=== PATIENT | female | born 1985 | race Caucasian/White ===

== ENCOUNTER → 2020-08-04 13:16 | Outpatient (BNVA) | payer MEDICARE, MEDICAID, SELFPAY | PROVIDERS: PCP Physician Assistant Medical; Visit Provider Physician Assistant | DX: E66.01 Morbid (severe) obesity due to excess calories (principal); Z68.44 Body mass index [BMI] 60.0-69.9, adult | CPT/HCPCS: 99214 ==

== ENCOUNTER → 2020-08-18 07:46 | Outpatient (BNVA) | payer MEDICARE, MEDICAID, SELFPAY | PROVIDERS: Visit Provider Dietitian, Registered | DX: Z76.89 Persons encountering health services in other specified circumstances (principal) ==

== ENCOUNTER → 2020-09-15 13:36 | Outpatient (BNVA) | payer MEDICARE, MEDICAID, SELFPAY | PROVIDERS: Visit Provider Dietitian, Registered | DX: Z76.89 Persons encountering health services in other specified circumstances (principal) ==

== ENCOUNTER → 2020-10-26 08:16 | Outpatient (BNVA) | payer MEDICARE, MEDICAID, SELFPAY | PROVIDERS: Visit Provider Dietitian, Registered | DX: Z76.89 Persons encountering health services in other specified circumstances (principal) ==

== ENCOUNTER → 2020-11-03 11:27 | Outpatient (BNVA) | payer MEDICARE, MEDICAID, SELFPAY | PROVIDERS: PCP Internal Medicine; Visit Provider Surgery | DX: Z01.818 Encounter for other preprocedural examination (principal); E66.01 Morbid (severe) obesity due to excess calories; R06.02 Shortness of breath; Z68.44 Body mass index [BMI] 60.0-69.9, adult | CPT/HCPCS: Q3014 ==

== ENCOUNTER → 2020-11-11 08:08 | Outpatient (BNVA) | payer MEDICARE, MEDICAID, SELFPAY | PROVIDERS: PCP Nurse Practitioner Family; Visit Provider Physician Assistant | DX: E66.01 Morbid (severe) obesity due to excess calories (principal) | CPT/HCPCS: Q3014 ==

== ENCOUNTER → 2020-11-18 09:31 | Outpatient (BNVA) | payer MEDICARE, MEDICAID, SELFPAY | PROVIDERS: PCP Internal Medicine; Visit Provider Surgery | DX: Z01.818 Encounter for other preprocedural examination (principal); E66.01 Morbid (severe) obesity due to excess calories; K21.9 Gastro-esophageal reflux disease without esophagitis; R06.02 Shortness of breath; Z68.43 Body mass index [BMI] 50.0-59.9, adult | CPT/HCPCS: Q3014 ==

== ENCOUNTER → 2020-11-25 08:19 | Outpatient (BNVA) | payer MEDICARE, MEDICAID, SELFPAY | PROVIDERS: PCP Nurse Practitioner Family; Visit Provider Dietitian, Registered ==

== ENCOUNTER → 2020-12-02 08:38 | Outpatient (BNVA) | payer MEDICARE, MEDICAID, SELFPAY | PROVIDERS: PCP Nurse Practitioner Family; Visit Provider Dietitian, Registered ==

== ENCOUNTER → 2020-12-27 09:14 | Outpatient (BNVA) | payer MEDICARE, MEDICAID, SELFPAY | PROVIDERS: PCP Internal Medicine; Visit Provider Nurse Practitioner Family | DX: G47.33 Obstructive sleep apnea (adult) (pediatric) (principal); G47.00 Insomnia, unspecified | CPT/HCPCS: Q3014 ==

== ENCOUNTER → 2021-02-07 09:47 | Outpatient (BNVA) | payer MEDICARE, MEDICAID, SELFPAY | PROVIDERS: PCP Internal Medicine; Visit Provider Physician Assistant | DX: E66.01 Morbid (severe) obesity due to excess calories (principal); Z68.44 Body mass index [BMI] 60.0-69.9, adult; Z79.899 Other long term (current) drug therapy; Z71.3 Dietary counseling and surveillance | CPT/HCPCS: 99212 ==

== ENCOUNTER → 2021-03-07 14:12 | Outpatient (BNVA) | payer MEDICARE, MEDICAID, SELFPAY | PROVIDERS: PCP Nurse Practitioner Family; Referring Provider Nurse Practitioner Family; Visit Provider Surgery | DX: E66.01 Morbid (severe) obesity due to excess calories (principal); Z68.44 Body mass index [BMI] 60.0-69.9, adult | CPT/HCPCS: 99212 ==

== ENCOUNTER 2021-03-08 10:07 | Outpatient (REF) | payer MEDICARE, MEDICAID, SELFPAY ==
--- NOTE | ~2021-03-08 | XR_ITS ---
EXAMINATION: XR CHEST CLINICAL INFORMATION: Shortness of breath COMPARISON: None TECHNIQUE: 2 views of the chest were obtained. FINDINGS: No significant abnormality is noted involving the heart, lungs, mediastinum, bony thorax or soft tissues. XR/XR chest 2V IMPRESSION: Unremarkable examination.
[2021-03-08 11:40] LABS: MANUAL DIFF FLAG NO
[2021-03-08 11:45] LABS: Basophils Percent Auto 0.4 % (0-2); Eosinophils Absolute Auto 0.1 X10*3/uL (0.0-0.4); Eosinophils Percent Auto 1.1 % (0-4); Hematocrit 39.6 % (37-47); Hemoglobin 12.5 g/dl (12.0-16.0); Imm Gran Abs Auto 0.03 X10*3/uL (0.00-0.03); Imm Gran Pct Auto 0.3 % (0.0-0.4); Lymphocytes Absolute Auto 2.5 X10*3/uL (1.2-4.9); Lymphocytes Percent Auto 24.2 % (20-40); Mean Corpuscular HGB Conc 31.6 g/dl (31.0-35.0); Mean Corpuscular Hemoglobin 27.3 pg (27.0-33.0); Mean Corpuscular Volume 86.5 fL (80-98); Monocytes Absolute Auto 0.6 X10*3/uL (0.1-1.2); Monocytes Percent Auto 6.2 % (2-11); Neutrophils Percent Auto 67.8 % (45-73); Platelet Count 478 X10*3/uL (160-400); Red Blood Count 4.58 X10*6/uL (4.20-5.50); Red Cell Distribution Width 14.5 % (11.0-16.0); White Blood Count 10.3 X10*3/uL (4.8-10.8)
[2021-03-08 12:08] LABS: Alanine Aminotransferase 19 U/L (0-31); Albumin Level 4.1 g/dL (3.5-5.0); Alkaline Phosphatase 81 U/L (39-117); Anion Gap 13 (12-20); Aspartate Amino Transferase 12 U/L (5-31); Bilirubin Total 0.4 mg/dL (0.0-1.0); Blood Urea Nitrogen 9 mg/dL (9-16); Calcium 9.5 mg/dL (8.4-10.2); Carbon Dioxide 27 mmol/L (22-29); Chloride 103 mmol/L (96-108); Cholesterol 175 mg/dL; Estimated Glomerular Filt Rate > 60; Glucose Fasting 84 mg/dL (60-99); HDL Cholesterol 50 mg/dL; Iron 41 mcg/dL (30-160); LDL Cholesterol Calculated 112 mg/dl; Percent Iron Saturation 11 % (15-50); Potassium 4.7 mmol/L (3.3-5.1); Sodium 138 mmol/L (135-145); Total Iron Binding Capacity 379 mcg/dL (228-428); Triglycerides 66 mg/dL; Unsaturated Iron Binding 338 ug/dL
[2021-03-08 12:30] LABS: Thyroid Stimulating Hormone 1.97 uIU/mL (0.32-4.0); Vitamin D 25-OH Total 30.2 ng/mL (>30)
[2021-03-08 12:59] LABS: Vitamin B12 256 pg/mL (200-900)
--- NOTE | 2021-03-08 13:54 | ECG_ITS ---
Test Reason : SOB Blood Pressure : / mmHG Vent. Rate : 080 BPM Atrial Rate : 080 BPM P-R Int : 154 ms QRS Dur : 086 ms QT Int : 390 ms P-R-T Axes : 023 -12 061 degrees QTc Int : 449 ms Normal sinus rhythm Normal ECG No previous ECGs available Referred By: Natali Botello Electronically Signed By:DONNIE RICHEY
[2021-03-10 10:22] LABS: Calcium (PTHI) 9.5 mg/dL (8.6-10.2); PTHI 50 pg/mL (14-64)
[2021-03-10 16:51] LABS: Zinc 62 mcg/dL (60-130)
[2021-03-12 12:16] LABS: Vitamin B1 11 nmol/L (8-30)
[2021-03-14 10:17] LABS: Vitamin A 48 mcg/dL (38-98)
== END 2021-03-08 10:08 | disposition home or self-care (01) ==
LOC: HO.LAB 10:07
PROVIDERS: PCP Nurse Practitioner Family; Visit Provider Surgery
DX: Z01.818 Encounter for other preprocedural examination (principal); R06.02 Shortness of breath
CPT/HCPCS: 36415; 71046; 80053; 80061; 82306; 82607; 83540; 83970; 84425; 84443; 84590; 84630; 85025; 86140; 93005

== ENCOUNTER 2021-03-27 13:58 | Outpatient (REF) | payer MEDICARE, MEDICAID, SELFPAY ==
[2021-03-28 11:37] LABS: H Pylori Breath Test NOT DETECTED (NOT DETECTED)
== END 2021-03-27 13:59 | disposition home or self-care (01) ==
LOC: HO.LNP 13:58
PROVIDERS: Surgery; PCP Nurse Practitioner Family; Referring Provider Nurse Practitioner Family; Visit Provider Physician Assistant
DX: E66.01 Morbid (severe) obesity due to excess calories (principal); Z68.44 Body mass index [BMI] 60.0-69.9, adult; Z71.3 Dietary counseling and surveillance
CPT/HCPCS: 83013; 99212

== ENCOUNTER → 2021-04-25 08:35 | Outpatient (BNVA) | payer MEDICARE, MEDICAID, SELFPAY | PROVIDERS: PCP Internal Medicine; Visit Provider Nurse Practitioner Family | CPT/HCPCS: Q3014 ==

== ENCOUNTER → 2021-10-09 13:37 | Outpatient (BNVA) | payer MEDICARE, MEDICAID, SELFPAY | PROVIDERS: PCP Nurse Practitioner Family; Referring Provider Nurse Practitioner Family; Visit Provider Physician Assistant Surgical | DX: E66.01 Morbid (severe) obesity due to excess calories (principal); Z68.45 Body mass index [BMI] 70 or greater, adult | CPT/HCPCS: 99212 ==

== ENCOUNTER → 2022-01-19 08:13 | Outpatient (BNVA) | payer MEDICARE, MEDICAID, SELFPAY | PROVIDERS: PCP Nurse Practitioner Family; Visit Provider Nurse Practitioner Family | DX: Z13.89 Encounter for screening for other disorder (principal) | CPT/HCPCS: Q3014 ==

== ENCOUNTER 2023-06-06 16:21 | Emergency (ER) | payer MEDICARE, MEDICAID, SELFPAY ==
[2023-06-06 16:45] VITALS: BP 150/101; PULSE 84; RESP 18; TEMP 36.8; O2SAT 96; BMI 76.7
--- NOTE | 2023-06-06 16:46 | ED_ITS ---
HPI - Psych General Chief Complaint: Psychiatric Symptoms Stated Complaint: etoh,feeling suicidal Time Seen by Provider: 06/06/23 16:39 Source: patient Mode of arrival: ambulatory Limitations: no limitations History of Present Illness HPI Narrative: Patient comes to the emergency room complaining of suicidal ideation, anxiety, depression, and alcohol intoxication. Patient states that she does take her medication regularly, occasionally forgets. Patient states that she does not believe that her medications are helping her. Patient denies homicidal ideation. Patient states that she did not tried hurting herself prior to arrival. Related Data Home Medications Medication Instructions Recorded Confirmed albuterol sulfate 90 mcg/actuation 2 puff inhalation Q4-6H PRN 06/06/23 06/06/23 aerosol inhaler (Ventolin HFA) Shortness Of Breath Or Wheezing amlodipine 5 mg tablet 5 mg PO DAILY 06/06/23 06/06/23 brexpiprazole 3 mg tablet (Rexulti) 3 mg PO DAILY 06/06/23 06/06/23 cholestyramine (with sugar) 4 gram 4 g PO BID 06/06/23 06/06/23 oral powder ergocalciferol (vitamin D2) 1,250 1,250 mcg PO QWEEK 06/06/23 06/06/23 mcg (50,000 unit) capsule fluticasone fur. 100 mcg-umeclid 1 ea inhalation DAILY 06/06/23 06/06/23 62.5 mcg-vilant 25 mcg inhalat.powder (Trelegy Ellipta) fluticasone propionate 50 2 spray intranasal DAILY 06/06/23 06/06/23 mcg/actuation nasal spray,suspension lorazepam 0.5 mg tablet 0.5 mg PO BID PRN Anxiety 06/06/23 06/06/23 metformin 500 mg tablet 500 mg PO BID 06/06/23 06/06/23 norethindrone 1 mg-ethinyl 1 tab PO DAILY 06/06/23 06/06/23 estradiol 20 mcg (21)-iron 75 mg (7) tablet (11/02 (28)) oxcarbazepine 300 mg tablet 300 mg PO BID 06/06/23 06/06/23 pantoprazole 40 mg tablet,delayed 40 mg PO QAM 06/06/23 06/06/23 release propranolol 60 mg capsule,24 60 mg PO DAILY 06/06/23 06/06/23 hr,extended release sertraline 100 mg tablet 150 mg PO QAM 06/06/23 06/06/23 trazodone 100 mg tablet 100 mg PO BID 06/06/23 06/06/23 Allergies Allergy/AdvReac Type Severity Reaction Status Date / Time Seasonal Allergies Allergy Severe Itchy Eyes Verified 10/09/21 13:46 Review of Systems Review of Systems: Constitutional : No Weight loss, No Fever, No Chills, No Night Sweats, No Fatigue, No Malaise ENT/Mouth : No Hearing loss, No Ear Pain, No Nasal Congestion, No Sinus Pain, No Hoarseness, No sore throat, No Rhinorrhea, No Swallowing Difficulty Eyes: No Eye Pain, No Swelling, No Redness, No Foreign Body, No Discharge, No Vision Changes Cardiovascular : No Chest Pain, No SOB, No Dyspnea on Exertion, No Orthopnea, No Edema, No Palpitations Respiratory : No Cough, No Sputum, No Wheezing, No Smoke Exposure, No Dyspnea Gastrointestinal : No Nausea, No Vomiting, No Diarrhea, No Constipation, No abdominal Pain, No Hematochezia, No Melena Genitourinary : no irregular bleeding, No Dysuria, No Urinary Frequency, No Johnny turia, No Urinary Incontinence, No Urgency, No Flank Pain, No Urinary Flow Changes, No Hesitancy Musculoskeletal : No joint pain, No Myalgias, No Joint Swelling Skin : No Skin Lesions, No rash Neuro : No Weakness, No Numbness, No Paresthesias, No Loss of Consciousness, No Dizziness, No Headache Psych : Complaining of anxiety, depression, suicidal thoughts, admits to alcohol abuse, no homicidal ideation Heme/Lymph: No Bruising, No Bleeding,No Lymphadenopathy Endocrine : No Polyuria, No Polydipsia, No Temperature Intolerance [facility] Past Medical History Medical History Anxiety Depression GERD with apnea Hypertension Insomnia Migraines Morbid obesity Obesity Overactive bladder Sleep apnea Surgical History History of ankle surgery History of colonoscopy History of endoscopy History of incision and drainage History of tonsillectomy and adenoidectomy Hx of cholecystectomy Family History Family History Father Hypertension Heart disease Diabetes Sleep apnea Mother Hypertension Social History Social History (Updated 10/09/21 @ 13:51 by Yvonne Tate LPN) Alcohol intake: never Patient Tobacco Use Status: Never used Tobacco Advance Directives: No Advance Directives Information Provided: No Physical Exam Vital Signs: Vital Signs: Last Vital Signs Temp 98.2 F 06/06/23 16:45 Pulse 84 06/06/23 16:45 Resp 18 06/06/23 16:45 BP 150/101 H 06/06/23 16:45 Pulse Ox 96 06/06/23 16:45 O2 Del Method Room Air 06/06/23 16:45 BMI result Body Mass Index 76.7 Const: Other: Appearance: Alert. Oriented X3. No acute distress. Eyes: Pupils equal, round and reactive to light. ENT: Pharynx normal. Neck: Normal inspection. Neck supple. No lymph nodes noted. No crepitus CVS: Normal heart rate and rhythm. Pulses normal. Normal S1 and S2 Respiratory: No respiratory distress. Breath sounds normal. No Wheezing. No rales Abdomen: Soft and nontender. No rigidity. No distention. Skin: Skin warm and dry. Normal skin color. Normal skin turgor. Extremities: No lower extremity edema. No Lacerations. No Rash Neuro: Oriented X 3. No motor deficit. No sensory deficit. Moving all extremities. No slurred speech. CN 2 through 12 grossly intact Psych: calm, cooperative, normal affect Course Course Course Narrative: -all of patient's labs pending -care team consult pending -physician observation started at 18:25 Medical Decision Making Lab Data 06/06/23 18:25 06/06/23 18:25 Labs: Lab Results 06/06/23 06/06/23 06/06/23 Range/Units 17:24 17:24 17:24 Urine Color Yellow Urine Appearance Clear Urine pH 5.5 (5.0-9.0) Ur Specific Oran >= 1.030 H (1.005-1.025) Urine Protein 30 (1+) H (Neg-Trace) mg/dL Urine Glucose (UA) Negative (Negative) mg/dL Urine Ketones Trace (Negative) mg/dL Urine Blood Negative (Negative) Urine Nitrite Negative (Negative) Ur Leukocyte Esterase Negative (Negative) Urine RBC 0-2 (0-2) /HPF Urine WBC 0-5 (0-5) /HPF Ur Squamous Epith Cells 6-10 (0-2) /HPF Urine Bacteria 2+ (None Seen) Hyaline Casts 0-2 (0-2) /LPF Urine Test NEGATIVE (NEGATIVE) Urine Opiates Screen Not Detected (Not Detect) Urine Fentanyl Screen Not Detected (Not Detect) Ur Barbiturates Screen Not Detected (Not Detect) Ur Phencyclidine Scrn Not Detected (Not Detect) Ur Amphetamines Screen Not Detected (Not Detect) U Benzodiazepines Scrn Not Detected (Not Detect) Urine Cocaine Screen Not Detected (Not Detect) U Marijuana (THC) Screen Not Detected (Not Detect) Discharge Plan Discharge Clinical Impression: Suicidal ideation, Alcohol abuse Patient Disposition: Still a Patient Prescriptions: No Action propranolol 60 mg capsule,extended release 24 hr 60 mg PO DAILY oxcarbazepine 300 mg tablet 300 mg PO BID norethindrone-e.estradiol-iron [Junel FE 11/02 (28)] 1 mg-20 mcg (21)/75 mg (7) tablet 1 tab PO DAILY amlodipine 5 mg tablet 5 mg PO DAILY lorazepam 0.5 mg tablet 0.5 mg PO BID PRN (Reason: Anxiety) trazodone 100 mg tablet 100 mg PO BID fluticasone propionate 50 mcg/actuation spray,suspension 2 spray intranasal DAILY cholestyramine (with sugar) 4 gram powder 4 g PO BID Rexulti 3 mg tablet 3 mg PO DAILY Trelegy Ellipta 100-62.5-25 mcg blister with device 1 ea inhalation DAILY metformin 500 mg tablet 500 mg PO BID sertraline 100 mg tablet 150 mg PO QAM ergocalciferol (vitamin D2) 1,250 mcg (50,000 unit) capsule 1,250 mcg PO QWEEK pantoprazole 40 mg tablet,delayed release (DR/EC) 40 mg PO QAM albuterol sulfate [Ventolin HFA] 90 mcg/actuation HFA aerosol inhaler 2 puff INHALATION Q4-6H PRN (Reason: Shortness Of Breath Or Wheezing) Interventions: [place]-Suicide Risk Severity Scale Last Done: 06/06/23 17:04
--- OUTSIDE RECORDS SUMMARY | 2023-06-06 17:32 | XMS_ITS | Continuity of Care Document ---
Author Name Unknown Organization [facility] Address [address] [place] [address]- Care Team Providers Care Resourcing Consultant Name Role Phone Linette RN, January Alana Primary Care Ph ysician Encounter [facility] [id number] Date(s): 03/25/23 - 05/23/23 [facility] [address] [place] [address]- Attending Physician: Von Haque MD Admitting Physician: Von Haque MD Referring Physician: Linette JOSE, January Alana Allergies, Adverse Reactions, Alerts Substance Reaction Severity Status hydrOXYzine Active topiramate 1 Active Other Environmental Allergy Active 1rash Immunizations Given and Recorded Vaccine Date Status Refusal Reason influenza virus vaccine, inactivated 1 08/06/17 Re corded influenza virus vaccine, inactivated 07/16/16 Give n influenza virus vaccine, inactivated 07/18/15 Give n influenza virus vaccine, inactivated 06/23/14 Efraín rded Boostrix (Tdap) (oldterm) 2 06/02/14 Given tetanus/diphtheria/pertussis, acel(Tdap) 12/02/08 Recorded Human Papillomavirus Vaccine 07/14/07 Recorded Human Papillomavirus Vaccine 04/07/07 Recorded Human Papillomavirus Vaccine 02/10/07 Recorded 1Result Comment: [09/16/2017] done at pharm[facility] 2Result Comment: [06/02/2014] Dr. Rosas Medications amLODIPine 5 mg oral tablet 5 mg, 1, tablet, By Mouth, Daily, Refills 0, Maintenance, 12/27/21 11:47:00 EDT, Partial fill upon patient request if the prescription is for a schedule II opioid drug. Start Date: 12/27/21 Status: Ordered atomoxetine 40 mg oral capsule 1 capsule = 40 mg, By Mouth, Daily in AM, 0 Refills, Maintenance, 04/12/22 15:03:00 EDT, Partial fill upon patient request if the prescription is for a schedule II opioid drug. Start Date: 04/12/22 Status: Ordered Breo Ellipta 200 mcg-25 mcg/inh inhalation powder 1 puffs, Inhalation, Daily, 0 Refills, Maintenance, 12/27/21 11:48:00 EDT, Powder, Partial fill upon patient request if the prescription is for a schedule II opioid drug. Start Date: 12/27/21 Status: Ordered busPIRone 15 mg oral tablet 2 tablet = 30 mg, By Mouth, 2 times a day, 0 Refills, Maintenance, 12/02/19 8:55:00 EST Start Date: 12/02/19 Status: Ordered busPIRone 30 mg oral tablet 1 tablet = 30 mg, By Mouth, 2 times a day, # 60 tablet, 0 Refills, Maintenance, 07/24/22 10:12:00 EDT, Tablet, Partial fill upon patient request if the prescription is for a schedule II opioid drug. Start Date: 07/24/22 Status: Ordered cholecalciferol 1000 intl units oral capsule 1 capsule = 1,000 International_Units, By Mouth, Every week, 50,0000 units, # 5 capsule, 1 Refills,Maintenance, 07/27/19 13:56:05 EDT, Capsule Start Date: 07/27/19 Status: Ordered Cholestyramine Light 4 g/5.7 g oral powder for reconstitution = 4 Gm, By Mouth, 2 times a day, # 60 each, 1 Refills, Maintenance, 07/27/19 13:49:58 EDT, REC Powder Start Date: 07/27/19 Status: Ordered Depakote 500 mg oral enteric coated tablet 1 tablet = 500 mg, By Mouth, Daily, 0 Refills, Maintenance, 04/12/22 14:58:00 EDT, Partial fill upon patient request if the prescription is for a schedule II opioid drug. Start Date: 04/12/22 Status: Ordered ibuprofen 600 mg oral tablet 600 mg, 1, tablet, By Mouth, 4 times a day, PRN, Refills 0, Maintenance, for pain, 12/27/21 11:47:00 EDT, Partial fill upon patient request if the prescription is for a schedule II opioid drug. Start Date: 12/27/21 Status: Ordered Imitrex 50 mg oral tablet 1 tablet = 50 mg, By Mouth, Daily, PRN for migraine headache, may repeat dose after 2 hours up to amaximum of 2, 0 Refills, Maintenance, 12/27/21 11:50:00 EDT, Tablet, Partial fill upon patient request if the prescription is for a schedule II opioid... Start Date: 12/27/21 Status: Ordered irbesartan 300 mg oral tablet 1 tablet = 300 mg, By Mouth, Daily, 0 Refills, Maintenance, 04/12/22 15:02:00 EDT, Partial fill upon patient request if the prescription is for a schedule II opioid drug. Start Date: 04/12/22 Status: Ordered losartan 50 mg oral tablet 50 mg, 1, tablet, By Mouth, Daily, # 30 tablet, Refills 1, Tot. Refills 1, Maintenance, 07/27/19 13:50:52 EDT, Route to Pharmacy Electronically, [id number], [facility]/pharmacy #[id number] Start Date: 07/27/19 Stop Date: 09/25/19 Status: Ordered metFORMIN 500 mg oral tablet 1 tablet = 500 mg, By Mouth, Daily before breakfast, 0 Refills, Maintenance, 04/12/22 15:04:00 EDT,Partial fill upon patient request if the prescription is for a schedule II opioid drug. Start Date: 04/12/22 Status: Ordered multivitamin Multiple Vitamins oral tablet 1 tablet, By Mouth, Daily, please ask for addiitonal refills at ov, # 90 tablet, 1 Refills, Maintenance, 07/27/19 13:55:08 EDT, Tablet, 1 tablet By Mouth Daily,Instr:please ask for addiitonal refillsat ov Start Date: 07/27/19 Status: Ordered norethindrone 0.35 mg oral tablet 1 tablet = 0.35 mg, By Mouth, Daily, 0 Refills, Maintenance, 12/27/21 11:49:00 EDT, Tablet, Partialfill upon patient request if the prescription is for a schedule II opioid drug. Start Date: 12/27/21 Status: Ordered omeprazole 20 mg oral enteric coated capsule 1 capsule = 20 mg, By Mouth, Daily, # 30 capsule, 1 Refills, Maintenance, 07/27/19 13:48:52 EDT Start Date: 07/27/19 Stop Date: 09/25/19 Status: Ordered oxybutynin 15 mg/24 hr oral tablet, extended release 1 tablet = 15 mg, By Mouth, Daily, 0 Refills, Maintenance, 12/27/21 11:47:00 EDT, ER Tablet, Partial fill upon patient request if the prescription is for a schedule II opioid drug. Start Date: 12/27/21 Status: Ordered propranolol 60 mg oral capsule, extended release 60 mg, 1, capsule, By Mouth, Daily, # 30 capsule, Refills 1, Tot. Refills 1, Maintenance, 07/27/19 13:53:05 EDT, Route to Pharmacy Electronically, [id number], [facility]/pharmacy #[id number] Start Date: 07/27/19 Stop Date: 09/25/19 Status: Ordered Rexulti 3 mg oral tablet 1 tablet = 3 mg, By Mouth, Daily, Patient states she is being tapered off of this medication, 0 Refills, Maintenance, 04/12/22 14:59:00 EDT, Partial fill upon patient request if the prescription is for a schedule II opioid drug. Start Date: 04/12/22 Status: Ordered sertraline 100 mg oral tablet 1 tablet = 100 mg, By Mouth, Daily, 0 Refills, Maintenance, 12/27/21 11:45:00 EDT, Tablet, Partial fill upon patient request if the prescription is for a schedule II opioid drug. Start Date: 12/27/21 Status: Ordered triamcinolone 55 mcg/inh nasal spray 1 sprays, Nares, Both, Daily, 0 Refills, Maintenance, 12/27/21 11:49:00 EDT, [place], Partial fill upon patient request if the prescription is for a schedule II opioid drug. Start Date: 12/27/21 Status: Ordered ZyrTEC 10 mg oral tablet 1 tablet = 10 mg, By Mouth, Daily, 0 Refills, Maintenance, 12/27/21 11:35:00 EDT, Tablet, Partial fill upon patient request if the prescription is for a schedule II opioid drug. Start Date: 12/27/21 Status: Ordered Problem List Condition Confirmation Course Effective Dates Status H ealth Status Informant Anemia Confirmed Active Ankle pain, left Confirmed Active Anxiety Confirmed Active Back pain Confirmed Active Bipolar disorder Confirmed Active Breathing-related sleep disorder Confirmed Active Sleep-related hypoventilation Confirmed Active Constipation Confirmed Active Depressive disorder Confirmed Active Passage of loose stools Confirmed Active Disorder of intestine Confirmed Active IUD complication Confirmed Active GERD (gastroesophageal reflux disease) Confirmed Active H/O: chickenpox Confirmed Active Hypersomnia Confirmed Active Hypertension Confirmed Active Hypothyroidism Confirmed Active Stool incontinence Confirmed Active Urinary frequency Confirmed Active Migraine Confirmed Active Morbid obesity with BMI of 50.0-59.9, adult Confirmed Active Nocturia Confirmed Active Nocturnal enuresis Confirmed Active Obesity Confirmed Active Moderate obstructive sleep apnea Confirmed Active Severe obesity Confirmed Active Sleep apnea Confirmed Active Abdominal cramping Confirmed Active Urge incontinence of urine Confirmed Active Social History Social History Type Response Smoking Status Never smoker; Tobacc o user in household: No entered on: 09/30/14 Sex Patient Care team information Care Team Personnel Name: Sridhar JOSE, Marilyn Gao Position: [facility] AMB Nurse Member Role: Primary Care Nurse Name: Nathaly Langston MD Position: [facility] BOBBIN INSPECTOR MD Member Role: Lifetime BOBBIN INSPECTOR Physician Address: Address: [address] [place] [address] [facility] [employer] [address]- Name: David JOSE, Hortensia Position: [facility] ED RN W/OE and Tasks Member Role: Primary Care Nurse Name: Linette JOSE, Anu Warner Position: Reference Physician Member Role: PCP Address: Address: [address] [place] [id number]- Care Team Related Persons Name: HARMAN STEVENSON Address: [address] [place] [address] Name: MARLIN CARMONA
--- OUTSIDE RECORDS SUMMARY | 2023-06-06 17:32 | XMS_ITS | Continuity of Care Document ---
Author Name Unknown Organization [facility] ter Address [address] [place] [address]- Care Team Providers Care Deli/Bakery Associate Name Role Phone Linette JOSE, January Alana Primary Care Ph ysician Encounter [facility] Date(s): 05/09/22 - 05/09/[address] [address]- Allergies, Adverse Reactions, Alerts Substance Reaction Severity [...] 8:55:00 EST Start Date: 12/02/19 Status: Ordered cholecalciferol 1000 intl units oral [...] 07/27/19 13:50:52 EDT, Route to Pharmacy Electronically, [id number], [facility]/pharmacy #[id number] Start Date: 07/27/19 Stop Date: 09/25/19 Status: Ordered metFORMIN 500 mg oral tablet 1 tablet = 500 mg, By Mouth, Daily before breakfast, 0 Refills, Maintenance, 04/12/22 15:04:00 EDT,Partial fill upon patient request if the prescription is for a schedule II opioid drug. Start Date: 04/12/22 Status: Ordered methylPREDNISolone 4 mg oral tablet Taper for leg rash, 0 Refills, Maintenance, 04/12/22 15:05:00 EDT, Partial fill upon patient request if [...] Date: 07/27/19 Stop Date: 09/25/19 Status: Ordered OXcarbazepine 300 mg oral tablet 3 tablets, By Mouth, Daily at bedtime, Refills 0, Maintenance, 12/27/21 11:46:00 EDT, Partial fill upon patient request if the prescription is for a schedule II opioid drug. Start Date: 12/27/21 Status: Ordered oxybutynin 15 mg/24 hr oral [...] 07/27/19 13:53:05 EDT, Route to Pharmacy Electronically, [id number], [facility]/pharmacy #[id number] Start Date: 07/27/19 Stop Date: 09/25/19 Status: Ordered Rexulti 3 mg oral tablet 1 tablet = 3 mg, By Mouth, Daily, Patient states she is being tapered off of this medication, 0 Refills, Maintenance, 04/12/22 14:59:00 EDT, Partial fill upon patient request if the prescription is for a schedule II opioid drug. Start Date: 04/12/22 Status: Ordered sertraline 100 mg oral tablet 1.5 tablet = 150 mg, By Mouth, Daily, 0 Refills, Maintenance, 12/27/21 11:45:00 EDT, Tablet, Partial fill upon patient request if the prescription is for a schedule II opioid drug. Start Date: 12/27/21 Status: Ordered triamcinolone 55 mcg/inh nasal spray 1 sprays, Nares, Both, Daily, 0 Refills, Maintenance, 12/27/21 11:49:00 EDT, [place], Partial fill upon patient request if the prescription is for a schedule II opioid drug. Start Date: 12/27/21 Status: Ordered ZyrTEC 10 mg oral tablet 1 tablet = 10 mg, By Mouth, Daily, 0 Refills, Maintenance, 12/27/21 11:35:00 EDT, Tablet, Partial fill upon patient request if the prescription is for a schedule II opioid drug. Start Date: 12/27/21 Status: Ordered Problem List Condition Effective Dates Status Health Status Inform ant Anemia(Confirmed) Active Ankle pain, left(Confirmed) Active Anxiety(Confirmed) Active Back pain(Confirmed) Active Bipolar disorder(Confirmed) Active Breathing-related sleep disorder(Confirmed) Active Sleep-related hypoventilation(Confirmed) Active Constipation(Confirmed) Active Depressive disorder(Confirmed) Active Passage of loose stools(Confirmed) Active Disorder of intestine(Confirmed) Active IUD complication(Confirmed) Active GERD (gastroesophageal reflu x disease)(Confirmed) Active H/O: chickenpox(Confirmed) Active Hypersomnia(Confirmed) Active Hypertension(Confirmed) Active Hypothyroidism(Confirmed) Active Stool incontinence(Confirmed) Active Urinary frequency(Confirmed) Active Migraine(Confirmed) Active Morbid obesity with BMI of 5 0.0-59.9, adult(Confirmed) Active Nocturia(Confirmed) Active Nocturnal enuresis(Confirmed) Active Obesity(Confirmed) Active Moderate obstructive sleep apnea(Confirmed) Active Sleep apnea(Confirmed) Active Abdominal cramping(Confirmed) Active Urge incontinence of urine(Confirmed) Active Social History Social History Type Response Smoking Status Never smoker; Tobacc o user in household: No entered on: 09/30/14 Sex
--- OUTSIDE RECORDS SUMMARY | 2023-06-06 17:32 | XMS_ITS | Continuity of Care Document ---
Author Name Unknown Organization [facility] Address [address] [place] [address]- Care Team Providers Care Fender Mechanic Apprentice Name Role Phone Linette RN, January Alana Primary Care Ph ysician Encounter [facility] Date(s): 08/13/22 - 09/12/22 [facility] [address] [place] [address]- Allergies, Adverse Reactions, Alerts Substance Reaction Severity [...] 07/27/19 13:50:52 EDT, Route to Pharmacy Electronically, [id number], [facility]/pharmacy #[id number] Start Date: 07/27/19 Stop Date: 09/25/19 [...] 07/27/19 13:53:05 EDT, Route to Pharmacy Electronically, [id number], [facility]/pharmacy #[id number] Start Date: 07/27/19 Stop Date: 09/25/19 [...] Daily, 0 Refills, Maintenance, 12/27/21 11:49:00 EDT, [place], Partial fill upon patient request if the [...] Care team information Care Team Personnel Name: Ivis GUIDRY, Nathaly Bernard Position: [facility] GOLF SUPERINTENDENT MD Member Role: Lifetime GOLF SUPERINTENDENT Physician Address: Address: [address] [place] [address] [facility] [employer] [place] [address]- Name: Linette JOSE, January [facility] Position: Reference Physician Member Role: PCP Address: Address: [address] [place] [id number]- Care Team Related Persons Name: HARMAN STEVENSON Address: home [address] [place] [address] Name: MARLIN CARMONA
--- OUTSIDE RECORDS SUMMARY | 2023-06-06 17:32 | XMS_ITS | Continuity of Care Document ---
Author Name Unknown Organization [facility] oenterology Address [address] [place] [address]- Care Team Providers Care Panelboard Assembler Name Role Phone Linette RN, January Alana Primary Care Ph ysician [place] [facility] [place] Date(s): 08/14/22 - 09/13/22 [facility] Gastroenterology [address] [place] [address]- Allergies, Adverse Reactions, Alerts Substance Reaction Severity [...] 07/27/19 13:50:52 EDT, Route to Pharmacy Electronically, [id number], [facility]/pharmacy #[id number] Start Date: 07/27/19 Stop Date: 09/25/19 [...] 07/27/19 13:53:05 EDT, Route to Pharmacy Electronically, [id number], [facility]/pharmacy #[id number] Start Date: 07/27/19 Stop Date: 09/25/19 [...] Daily, 0 Refills, Maintenance, 12/27/21 11:49:00 EDT, [place], Partial fill upon patient request if the [...] Personnel Name: Ivis GUIDRY, Nathaly Bernard Position: [facility] CHIEF MATE MD Member Role: Lifetime CHIEF MATE Physician Address: Address: [address] [place] [address] [place] [address]- Name: Linette JOSE, January [facility] Position: Reference Physician Member Role: PCP Address: Address: [address] [place] [address]- Care Team Related Persons Name: HARMAN STEVENSON Address: home [address] [place] [address] Name: MARLIN CARMONA
--- OUTSIDE RECORDS SUMMARY | 2023-06-06 17:32 | XMS_ITS | Continuity of Care Document ---
Author Name Unknown Organization [facility] oenterology Address [address] [place] [address]- Care Team Providers Care Packer Sausage And Wiener Name Role Phone Linette RN, January Alana Primary Care Ph ysician Encounter [facility] [place] Date(s): 08/17/22 - 09/16/22 [facility] Gastroenterology [address] [place] [address]- Allergies, Adverse Reactions, Alerts Substance Reaction Severity [...] 07/27/19 13:50:52 EDT, Route to Pharmacy Electronically, [id number], [facility]/pharmacy #[id number] Start Date: 07/27/19 Stop Date: [...] 07/27/19 13:53:05 EDT, Route to Pharmacy Electronically, [id number], [facility]/pharmacy #[id number] Start Date: 07/27/19 Stop Date: [...] Daily, 0 Refills, Maintenance, 12/27/21 11:49:00 EDT, [place], Partial fill upon patient request if the [...] Personnel Name: Ivis GUIDRY, Nathaly Bernard Position: [facility] BLACK TOP ROLLER MD Member Role: Lifetime BLACK TOP ROLLER Physician Address: Address: [address] [place] [address] Women's Health [place] [address]- Name: Linette JOSE, January [facility] Position: Reference Physician Member Role: PCP Address: Address: [address] [place] [address]- Care Team Related Persons Name: HARMAN STEVENSON Address: home [address] [place] [address] Name: MARLIN CARMONA
--- OUTSIDE RECORDS SUMMARY | 2023-06-06 17:32 | XMS_ITS | Continuity of Care Document ---
Author Name Unknown Organization [facility] Address [address] [place] [address]- Care Team Providers Care Chocolate Temperer Name Role Phone Linette JOSE, January Alana Primary Care Ph ysician Encounter [facility] [place] Date(s): 04/12/22 - 07/27/[address] [address] Encounter Diagnosis Major depressive disorder, recurrent, moderate(Final) - Discharge Disposition: A-D/C Home Attending Physician: Toy Paniagua MD Admitting Physician: Toy Paniagua MD Referring Physician: Not on Staff, Referring MD Allergies, Adverse Reactions, Alerts Substance Reaction Severity [...] 02/10/07 Recorded 1Result Comment: [09/16/2017] done at [facility] 2Result Comment: [06/02/2014] Dr. Rosas Medications amLODIPine [...] 07/27/19 13:50:52 EDT, Route to Pharmacy Electronically, [id number], [facility]/pharmacy #[id number] Start Date: 07/27/19 Stop Date: [...] 07/27/19 13:53:05 EDT, Route to Pharmacy Electronically, [id number], [facility]/pharmacy #[id number] Start Date: 07/27/19 Stop Date: [...] Daily, 0 Refills, Maintenance, 12/27/21 11:49:00 EDT, [place], Partial fill upon patient request if the [...] Active Moderate obstructive sleep apnea Confirmed Active Sleep apnea Confirmed Active Abdominal cramping Confirmed Active Urge incontinence of urine Confirmed Active Vital Signs Most recent to oldest [Reference Range]: 1 Sensory deficits None (04/12/22 2:07 PM) Social History Social History Type Response Smoking Status Never smoker; Tobacc o user in household: No entered on: 09/30/14 Sex Patient Care team information Personnel Name: Linette JOSE, January Alana Address: Address: [address] [place] [address]
--- OUTSIDE RECORDS SUMMARY | 2023-06-06 17:32 | XMS_ITS | Continuity of Care Document ---
Author Name Unknown Organization [facility] em Address Unknown Care Team Providers Care Hairspring Cutter Name Role Phone Linette RN, January Alana Primary Care Ph ysician [place] [facility] [place]15[place] - 09/14/22 [facility] Attending Physician: Estrella Hmamond Admitting Physician: AdmtrEstrella Referring Physician: AdmtrEstrella Allergies, Adverse Reactions, Alerts Substance Reaction Severity [...] 07/27/19 13:50:52 EDT, Route to Pharmacy Electronically, [id number], [facility]/pharmacy #[id number] Start Date: 07/27/19 Stop Date: [...] 07/27/19 13:53:05 EDT, Route to Pharmacy Electronically, [id number], [facility]/pharmacy #[id number] Start Date: 07/27/19 Stop Date: [...] Daily, 0 Refills, Maintenance, 12/27/21 11:49:00 EDT, [place], Partial fill upon patient request if the [...] Care team information Care Team Personnel Name: Nathaly Langston MD Position: [facility] TELECOMMUNICATIONS MANAGER MD Member Role: Lifetime TELECOMMUNICATIONS MANAGER Physician Address: Address: [address] [place] [address] Women's [place] [address]- Name: Linette JOSE, Anu [facility] Position: Reference Physician Member Role: PCP Address: Address: [address] [place] [address]- Care Team Related Persons Name: HARMAN STEVENSON Address: [address] [place] [address] Name: MARLIN CARMONA
--- OUTSIDE RECORDS SUMMARY | 2023-06-06 17:32 | XMS_ITS | Continuity of Care Document ---
Author Name Unknown Organization [facility] Address [address] [place] [address]- Care Team Providers Care Tractor Trailer Truck Driver Name Role Phone Linette RN, January [facility] Primary Care Ph ysician Encounter [facility] Date(s): 08/08/22 - [facility]07[facility] [address] [place] [address]- Allergies, Adverse Reactions, Alerts Substance Reaction Severity [...] 02/10/07 Recorded 1Result Comment: [09/16/2017] done at pharm 2Result Comment: [06/02/2014] Dr. Rosas Medications amLODIPine [...] 07/27/19 13:50:52 EDT, Route to Pharmacy Electronically, [id number], [facility]/pharmacy #[id number] Start Date: 07/27/19 Stop [...] 07/27/19 13:53:05 EDT, Route to Pharmacy Electronically, [id number], [facility]/pharmacy #[id number] Start Date: 07/27/19 Stop [...] Daily, 0 Refills, Maintenance, 12/27/21 11:49:00 EDT, [place], Partial fill upon patient request if the [...] Team Personnel Name: Nathaly Langston MD Position: [facility] DATABASE DEVELOPMENT PROJECT MANAGER MD Member Role: Lifetime DATABASE DEVELOPMENT PROJECT MANAGER Physician [facility]: [facility] [place] [address]- Name: Linette JOSE, January [facility] Position: Reference Physician Member Role: PCP Address: Address: [address] [place] [address]- Care Team Related Persons Name: HARMAN STEVENSON Address: home [address] [place] [address] Name: MARLIN CARMONA
--- OUTSIDE RECORDS SUMMARY | 2023-06-06 17:32 | XMS_ITS | Continuity of Care Document ---
Author Name Unknown Organization [facility] Gastroenter ology Address [address] [place] [address]- Care Team Providers Care Mobile Designer Name Role Phone Linette JOSE, January [facility] Primary Care Ph ysician Encounter [facility] [place] Date(s): 04/23/23 - 05/23/23 [facility] Gastroenterology [address] [place] [address]- Attending Physician: Estrella Hammond Admitting Physician: AdmtrEstrella Referring Physician: Admtr, Ar8 Allergies, Adverse Reactions, Alerts Substance Reaction Severity [...] 07/27/19 13:50:52 EDT, Route to Pharmacy Electronically, [id number], [facility]/pharmacy #[id number] Start Date: 07/27/19 Stop [...] 07/27/19 13:53:05 EDT, Route to Pharmacy Electronically, [id number], [facility]/pharmacy #[id number] Start Date: 07/27/19 Stop [...] Daily, 0 Refills, Maintenance, 12/27/21 11:49:00 EDT, [place], Partial fill upon patient request if the [...] in household: No entered on: 09/30/14 Sex Laboratory * Event Display: Non Lab Results Authored Date: Radiology * Event Display: CT Scan Abdomen, Non- Authored Date: Patient Care team information Care Team Personnel Name: Sridhar RN, Marilyn Gao Position: [facility] AMB Nurse Member Role: Primary Care Nurse Name: Ivis GUIDRY, Nathaly Bernard Position: [facility] COOKER MECHANIC MD Member Role: Lifetime COOKER MECHANIC Physician Address: Address: [address] [place] [address] Women's [place] [address]- Name: David JOSE, Hortensia Position: [facility] ED RN W/OE and Tasks Member Role: Primary Care Nurse Name: Linette JOSE, Anu Warner Position: Reference Physician Member Role: PCP Address: Address: [address] [place] [address] - Care Team Related Persons Name: HARMAN STEVENSON Address: home [address] [place] [address] Name: MARLIN CARMONA
--- OUTSIDE RECORDS SUMMARY | 2023-06-06 17:32 | XMS_ITS | Continuity of Care Document ---
Author Name Unknown Organization [facility] oenterology Address [address] [place] [address]- Care Team Providers Care Tube Drawing Supervisor Name Role Phone Linette RN, January Alana Primary Care Ph ysician Encounter [facility] [place] Date(s): 08/20/22 - 09/19/22 [facility] Gastroenterology [address] [place] [address]- Allergies, Adverse Reactions, Alerts Substance Reaction Severity [...] 07/27/19 13:50:52 EDT, Route to Pharmacy Electronically, [id number], [facility]/pharmacy #[id number] Start Date: 07/27/19 Stop Date: 09/25/19 [...] 07/27/19 13:53:05 EDT, Route to Pharmacy Electronically, [id number], [facility]/pharmacy #[id number] Start Date: 07/27/19 Stop Date: 09/25/19 [...] Daily, 0 Refills, Maintenance, 12/27/21 11:49:00 EDT, [place], Partial fill upon patient request if the [...] Personnel Name: Ivis GUIDRY, Nathaly Bernard Position: [facility] ASSISTANT ANALYST MD Member Role: Lifetime ASSISTANT ANALYST Physician Address: Address: [address] [place] [address] Women's Health [place] [address]- Name: Linette JOSE, January [facility] Position: Reference Physician Member Role: PCP Address: Address: [address] [place] [address]- Care Team Related Persons Name: HARMAN STEVENSON Address: home [address] [place] [address] Name: MARLIN CARMONA
--- OUTSIDE RECORDS SUMMARY | 2023-06-06 17:32 | XMS_ITS | Continuity of Care Document ---
Author Name Unknown Organization [facility] Address [address] [place] [address]- Care Team Providers Care Gang Drill Press Operator Name Role Phone George LEDEZMA, Anay Brumfield Primary Care Physician Encounter [facility] Date(s): 09/29/19 - 10/09/19 [facility] [address] [place] [address] [facility] Attending Physician: Admtr, Justo8 Admitting Physician: AdmtrEstrella Referring Physician: Admtr, Ar8 Allergies, Adverse Reactions, Alerts Substance Reaction Severity Status Other Environmental Allergy Active Immunizations Given and Recorded Vaccine Date Status [...] pharm 2Result Comment: [06/02/2014] Dr. Rosas Medications amphetamine-dextroamphetamine 20 mg oral capsule, extended release 1 capsule = 20 mg, By Mouth, Daily, # 30 capsule, 0 Refills, Maintenance, 07/27/19 13:50:09 EDT, XRCapsule Start Date: 07/27/19 Stop Date: 08/26/19 Status: Ordered cholecalciferol 1000 intl units oral [...] REC Powder Start Date: 07/27/19 Status: Ordered cyanocobalamin 500 mcg oral tablet 2 tablet = 1,000 mcg, By Mouth, Daily, # 180 tablet, 1 Refills, Maintenance, 04/24/18 12:11:48 EDT Start Date: 04/24/18 Stop Date: 10/21/18 Status: Ordered docusate sodium 100 mg oral capsule 100 mg, 1, capsule, By Mouth, 2 times a day, # 60 capsule, Refills 0, Tot. Refills 0, Maintenance, 07/27/19 13:50:17 EDT, Route to Pharmacy Electronically, [id number], [facility]/pharmacy #[id number] Start Date: 07/27/19 Status: Ordered folic acid 1 mg oral tablet 1 mg, 1, tablet, By Mouth, Daily, # 30 tablet, Refills 1, Tot. Refills 1, Maintenance, 07/27/19 13:50:27 EDT, Route to Pharmacy Electronically, [id number], [facility]/pharmacy #[id number] Start Date: 07/27/19 Stop Date: 09/25/19 Status: Ordered loratadine 10 mg oral tablet 10 mg, 1, tablet, By Mouth, Daily, # 30 tablet, Refills 1, Tot. Refills 1, Maintenance, 07/27/19 13:50:36 EDT, Route to Pharmacy Electronically, [id number], [facility]/pharmacy #1095 Start Date: 07/27/19 Stop Date: 09/25/19 Status: Ordered losartan 50 mg oral tablet 50 mg, 1, tablet, By Mouth, Daily, # 30 tablet, Refills 1, Tot. Refills 1, Maintenance, 07/27/19 13:50:52 EDT, Route to Pharmacy Electronically, [id number], [facility]/pharmacy #1095 Start Date: 07/27/19 Stop Date: 09/25/19 Status: Ordered mirtazapine 30 mg oral tablet 1 tablet = 30 mg, By Mouth, Daily at bedtime, # 30 tablet, 1 Refills, Maintenance, 07/27/19 13:51:03 EDT, Tablet Start Date: 07/27/19 Stop Date: 09/25/19 Status: Ordered multivitamin Multiple Vitamins oral tablet 1 tablet, By Mouth, Daily, please ask for addiitonal refills at ov, # 90 tablet, 1 Refills, Maintenance, 07/27/19 13:55:08 EDT, Tablet, 1 tablet By Mouth Daily,Instr:please ask for addiitonal refillsat ov Start Date: 07/27/19 Status: Ordered Myrbetriq 50 mg oral tablet, extended release 1 tablet = 50 mg, By Mouth, Daily, # 30 tablet, 1 Refills, Maintenance, 07/27/19 13:48:39 EDT, ER Tablet Start Date: 07/27/19 Stop Date: 09/25/19 Status: Ordered omeprazole 20 mg oral enteric coated capsule 1 capsule = 20 mg, By Mouth, Daily, # 30 capsule, 1 Refills, Maintenance, 07/27/19 13:48:52 EDT Start Date: 07/27/19 Stop Date: 09/25/19 Status: Ordered propranolol 60 mg oral capsule, extended release 60 mg, 1, capsule, By Mouth, Daily, # 30 capsule, Refills 1, Tot. Refills 1, Maintenance, 07/27/19 13:53:05 EDT, Route to Pharmacy Electronically, [id number], [facility]/pharmacy #1095 Start Date: 07/27/19 Stop Date: 09/25/19 Status: Ordered QUEtiapine 25 mg oral tablet 25 mg, 1, tablet, By Mouth, 3 times a day, PRN, for agitation or anxiety as needed, # 50 tablet, Refills 1, Tot. Refills 1, Maintenance, Agitation, 07/27/19 13:54:21 EDT, Route to Pharmacy Electronically, [id number], [facility] Start Date: 07/27/19 Status: Ordered Problem List Condition Effective Dates [...]
--- OUTSIDE RECORDS SUMMARY | 2023-06-06 17:32 | XMS_ITS | Continuity of Care Document ---
Author Name Unknown Organization [facility] ter Address [address] [place] [address]- Care Team Providers Care 3D Specialist Name Role Phone George LEDEZMA, Anay Brumfield Primary Care Physician En[place] [facility] [place] Date(s): 08/20/19 - 09/25/[address] [address]- [facility] Attending Physician: Anay Vazquez NP Admitting Physician: Anay Vazquez NP Referring Physician: Anay Vazquez NP Allergies, Adverse Reactions, Alerts Substance Reaction Severity [...] 07/27/19 13:50:17 EDT, Route to Pharmacy Electronically, [id number], [facility]/pharmacy #1095 Start Date: 07/27/19 Status: Ordered folic acid 1 mg oral tablet 1 mg, 1, tablet, By Mouth, Daily, # 30 tablet, Refills 1, Tot. Refills 1, Maintenance, 07/27/19 13:50:27 EDT, Route to Pharmacy Electronically, [id number], [facility]/pharmacy #1095 Start Date: 07/27/19 Stop Date: 09/25/19 Status: Ordered loratadine 10 mg oral tablet 10 mg, 1, tablet, By Mouth, Daily, # 30 tablet, Refills 1, Tot. Refills 1, Maintenance, 07/27/19 13:50:36 EDT, Route to Pharmacy Electronically, [id number], [facility]/pharmacy #1095 Start Date: 07/27/19 Stop Date: 09/25/19 Status: Ordered losartan 50 mg oral tablet 50 mg, 1, tablet, By Mouth, Daily, # 30 tablet, Refills 1, Tot. Refills 1, Maintenance, 07/27/19 13:50:52 EDT, Route to Pharmacy Electronically, [id number], [facility]/pharmacy #1097 Start Date: 07/27/19 Stop Date: 09/25/19 Status: [...] 07/27/19 13:53:05 EDT, Route to Pharmacy Electronically, [id number], [facility]/pharmacy #1094 Start Date: 07/27/19 Stop Date: 09/25/19 Status: Ordered QUEtiapine 25 mg oral tablet 25 mg, 1, tablet, By Mouth, 3 times a day, PRN, for agitation or anxiety as needed, # 50 tablet, Refills 1, Tot. Refills 1, Maintenance, [place], 07/27/19 13:54:21 EDT, Route to Pharmacy Electronically, [id number], [facility] Start Date: 07/27/19 Status: Ordered Problem [...]
--- OUTSIDE RECORDS SUMMARY | 2023-06-06 17:32 | XMS_ITS | Continuity of Care Document ---
Author Name Unknown Organization [facility] Address [address] [place] [address] [address] [place] [address]- Care Team Providers Care Cobbler Mckay Name Role Phone George LEDEZMA, Anay Brumfield Primary Care Physician En[place] [facility] [place] Date(s): 01/05/20 - 01/15/[address] [place] [address]- [facility] Attending Physician: Admtr, Ar8 Admitting Physician: Admtr, Ar8 Referring Physician: Admtr, Ar8 Allergies, Adverse Reactions, [...] pharmcy 2Result Comment: [06/02/2014] Dr. Rosas Medications busPIRone 15 mg oral tablet 1 tablet = 15 mg, By Mouth, 2 times a day, [...] Date: 04/24/18 Stop Date: 10/21/18 Status: Ordered famotidine 20 mg oral tablet 20 mg, 1, tablet, By Mouth, Daily at bedtime, # 30 tablet, Refills 5, Tot. Refills 5, Maintenance, 12/02/19 10:01:00 EST, Route to Pharmacy Electronically, [facility]/pharmacy #1095, 151, cm, 12/02/19 8:49:00 EST, Height, 139, kg, 07/20/19 23:44:00 EDT, Dry... Start Date: 12/02/19 Stop Date: 05/30/20 Status: Ordered HydrOXYzine HCL Tablet By Mouth, 4 times a day, 0 Refills, Maintenance, 12/02/19 8:54:00 EST Start Date: 12/02/19 Status: Ordered loratadine 10 mg oral tablet 10 mg, 1, tablet, By Mouth, Daily, # 30 tablet, Refills 1, Tot. Refills 1, Maintenance, 07/27/19 13:50:36 EDT, Route to Pharmacy Electronically, [id number], [facility]/pharmacy #1095 Start Date: 07/27/19 Stop Date: 09/25/19 Status: Ordered losartan 50 mg oral tablet 50 mg, 1, tablet, By Mouth, Daily, # 30 tablet, Refills 1, Tot. Refills 1, Maintenance, 07/27/19 13:50:52 EDT, Route to Pharmacy Electronically, [id number], [facility]/pharmacy #1095 Start Date: 07/27/19 [...] 07/27/19 13:53:05 EDT, Route to Pharmacy Electronically, [id number], [facility]/pharmacy #1095 Start Date: 07/27/19 Stop Date: 09/25/19 Status: Ordered Problem List Condition Effective Dates [...]
--- OUTSIDE RECORDS SUMMARY | 2023-06-06 17:32 | XMS_ITS | Continuity of Care Document ---
Author Name Unknown Organization [facility] oenterology Address [address] [place] [address]- Care Team Providers Care Piano Maker Name Role Phone Anay Vazquez NP Primary Care Physician [place] [facility] [place]10[place]20 - 06/09/20 [facility] [address] [place] [address]- [facility] Allergies, Adverse Reactions, Alerts Substance Reaction Severity [...] Status: Ordered famotidine 20 mg oral tablet 1, tablet, By Mouth, Daily at bedtime, # 90 tablet, Refills 3, Tot. Refills 0, Maintenance, 05/10/20 20:32:00 EDT, Route to Pharmacy Electronically, [facility], 151, cm, 12/02/19 8:49:00 EST, Height, 139, kg, 07/20/19 23:44:00 EDT, Dry Weight Start Date: 05/10/20 Status: Ordered HydrOXYzine HCL Tablet By Mouth, 4 times a day, 0 Refills, Maintenance, 12/02/19 8:54:00 EST Start Date: 12/02/19 Status: Ordered loratadine 10 mg oral tablet 10 mg, 1, tablet, By Mouth, Daily, # 30 tablet, Refills 1, Tot. Refills 1, Maintenance, 07/27/19 13:50:36 EDT, Route to Pharmacy Electronically, [id number], [facility]/pharmacy #1095 Start Date: 07/27/19 Stop Date: 09/25/19 Status: Ordered losartan 50 mg oral tablet 50 mg, 1, tablet, By Mouth, Daily, # 30 tablet, Refills 1, Tot. Refills 1, Maintenance, 07/27/19 13:50:52 EDT, Route to Pharmacy Electronically, [id number], [facility]/pharmacy #1095 Start Date: 07/27/19 Stop Date: 09/25/19 [...] 07/27/19 13:53:05 EDT, Route to Pharmacy Electronically, [id number], [facility]/pharmacy #1095 Start Date: 07/27/19 Stop Date: 09/25/19 [...]
--- OUTSIDE RECORDS SUMMARY | 2023-06-06 17:32 | XMS_ITS | Continuity of Care Document ---
Author Name Unknown Organization [facility] oenterology Address [address] [place] [address]- Care Team Providers Care Equal Opportunity Representative Name Role Phone George LEDEZMA, Anay Brumfield Primary Care Physician [facility] Date[facility]): 12/02/19 - 12/09/19 [facility] Gastroenterology [address] [place] [address]- [facility] Attending Physician: Zuleima Cheng MD Admitting Physician: Zuleima Cheng MD Referring Physician: Steven Muro MD Allergies, Adverse Reactions, Alerts Substance Reaction [...] pharm 2Result Comment: [06/02/2014] Dr. Rosas Medications busPIRone [...] 12/02/19 10:01:00 EST, Route to Pharmacy Electronically, [facility]/pharmacy #[id number], 151, cm, 12/02/19 8:49:00 EST, Height, [...] 07/27/19 13:50:36 EDT, Route to Pharmacy Electronically, [id number], [facility]/pharmacy #[id number] Start Date: 07/27/19 Stop Date: 09/25/19 Status: Ordered losartan 50 mg oral tablet 50 mg, 1, tablet, By Mouth, Daily, # 30 tablet, Refills 1, Tot. Refills 1, Maintenance, 07/27/19 13:50:52 EDT, Route to Pharmacy Electronically, [id number], [id number] Start Date: 07/27/19 Stop Date: 09/25/19 [...] 07/27/19 13:53:05 EDT, Route to Pharmacy Electronically, [id number], [facility]/pharmacy #[id number] Start Date: 07/27/19 Stop Date: 09/25/19 [...] cramping(Confirmed) Active Urge incontinence of urine(Confirmed) Active Vital Signs Most recent to oldest [Reference Range]: 1 Height 151 cm (12/02/19 8:49 AM) Weight 141.1 kg (12/02/19 8:49 AM) Oxygen Saturation [94-100 %] 98 % (12/02/19 8:49 AM) Pulse Rate [55-90 bpm] 80 bpm (12/02/19 8:49 AM) Body Mass Index [18.5-24.99] 61.88 *>HHI* (12/02/19 8:49 AM) Blood Pressure [90-138/55-84 mm Hg] 114/ 80mm Hg (12/02/19 8:49 AM) Blood pressure sites Arm, right (12/02/19 8:49 AM) Weight Obtained Via Standing scale (12/02/19 8:49 AM) Social History Social History Type Response Smoking Status Never smoker; Tobacc o user in household: No entered on: 09/30/14 Sex
--- OUTSIDE RECORDS SUMMARY | 2023-06-06 17:32 | XMS_ITS | Continuity of Care Document ---
Author Name Unknown Organization [facility] Address [address] [facility], [address] [place] [address]- Care Team Providers Care Mold Shaker Name Role Phone George LEDEZMA, Anay Brumfield Primary Care Physician Encounter 11/21/21 - 11/28/21 [facility] [address], [address] [place] [address]- Attending Physician: Colt Tolliver MD Admitting Physician: Colt Tolliver MD Referring Physician: Colt Tolliver MD Allergies, Adverse Reactions, Alerts Substance Reaction [...] 05/10/20 20:32:00 EDT, Route to Pharmacy Electronically, [facility], 151, cm, 12/02/19 8:49:00 EST, Height, 139, [...] 07/27/19 13:50:36 EDT, Route to Pharmacy Electronically, [id number], [facility]/pharmacy #[id number] Start Date: 07/27/19 Stop Date: 09/25/19 Status: Ordered losartan 50 mg oral tablet 50 mg, 1, tablet, By Mouth, Daily, # 30 tablet, Refills 1, Tot. Refills 1, Maintenance, 07/27/19 13:50:52 EDT, Route to Pharmacy Electronically, [id number], [facility]/pharmacy #1095 Start Date: 07/27/19 [...] 07/27/19 13:53:05 EDT, Route to Pharmacy Electronically, [id number], [facility]/pharmacy #1095 Start Date: 07/27/19 [...]
--- OUTSIDE RECORDS SUMMARY | 2023-06-06 17:32 | XMS_ITS | Continuity of Care Document ---
Author Name Unknown Organization [facility] Address [address] [place] [address]- Care Team Providers Care Advertising Campaign Manager Name Role Phone Linette RN, January Alana Primary Care Ph ysician Encounter [facility] Date(s): 08/20/22 - 09/20/[address] [address]- Attending Physician: Zuleima Cheng MD Admitting Physician: Zuleima Cheng MD Referring Physician: Zuleima Cheng MD Allergies, Adverse Reactions, Alerts Substance Reaction [...] 07/27/19 13:50:52 EDT, Route to Pharmacy Electronically, [id number], [facility]/pharmacy #1095 Start Date: 07/27/19 Stop [...] 07/27/19 13:53:05 EDT, Route to Pharmacy Electronically, [id number], [facility]/pharmacy #1095 Start Date: 07/27/19 Stop [...] Daily, 0 Refills, Maintenance, 12/27/21 11:49:00 EDT, [place], Partial fill upon patient request if the [...] Team Personnel Name: Nathaly Langston MD Position: [facility] CABLEWAY OPERATOR MD Member Role: Lifetime CABLEWAY OPERATOR Physician Address: Address: [address] [place] [address] [facility] [address]- Name: Linette JOSE, January [facility] Position: Reference Physician Member Role: PCP Address: Address: [address] [place] [address]- Care Team Related Persons Name: HARMAN STEVENSON Address: home [address] [place] [address] Name: MARLIN CARMONA
--- OUTSIDE RECORDS SUMMARY | 2023-06-06 17:32 | XMS_ITS | Continuity of Care Document ---
Author Name Unknown Organization [facility] oenterology Address [address] [place] [address]- Care Team Providers Care Barrel Burner Name Role Phone Linette JOSE, January Alana Primary Care Ph ysician [place] [facility] [place] 03/05/23 - 04/04/23 [facility] Gastroenterology [address] [place] [address]- Attending Physician: Admtr, Ar8 Admitting Physician: Admtr, [...] 07/27/19 13:50:52 EDT, Route to Pharmacy Electronically, [id number], [facility]/pharmacy #1095 Start Date: 07/27/19 Stop [...] 07/27/19 13:53:05 EDT, Route to Pharmacy Electronically, [id number], [facility]/pharmacy #1095 Start Date: 07/27/19 Stop [...] Daily, 0 Refills, Maintenance, 12/27/21 11:49:00 EDT, [place], Partial fill upon patient request if the [...] in household: No entered on: 09/30/14 Sex Radiology * Event Display: Ultrasound Abdomen, Non- Authored Date: Patient Care team information Care Team Personnel Name: Sridhar RN, Marilyn Gao Position: [facility] AMB Nurse Member Role: Primary Care Nurse Name: Ivis GUIDRY, Nathaly Bernard Position: [facility] VIDEO NETWORK ENGINEER MD Member Role: Lifetime VIDEO NETWORK ENGINEER Physician Address: Address: [address] [place] [address] [facility] [place] [address]- Name: Hortensia Hernandez RN Position: [facility] ED RN W/OE and Tasks Member Role: Primary Care Nurse Name: Linette JOSE, Anu Warner Position: Reference Physician Member Role: PCP Address: Address: [address] [place] [address]- Care Team Related Persons Name: HARMAN STEVENSON Address: home [address] [place] [address] Name: MARLIN CARMONA
--- OUTSIDE RECORDS SUMMARY | 2023-06-06 17:32 | XMS_ITS | Continuity of Care Document ---
Author Name Unknown Organization [facility] oenterology Address [address] [place] [address]- Care Team Providers Care Mercerizing Range Feeder Name Role Phone Linette RN, January Alana Primary Care Ph ysician Encounter [facility] Date(s): 08/15/22 - 09/14/22 [facility] Gastroenterology [address] [place] [address]- Allergies, Adverse Reactions, Alerts Substance Reaction Severity [...] 07/27/19 13:50:52 EDT, Route to Pharmacy Electronically, [id number], [facility]/pharmacy #1095 Start [...] 07/27/19 13:53:05 EDT, Route to Pharmacy Electronically, [id number], [facility]/pharmacy #1095 Start [...] Daily, 0 Refills, Maintenance, 12/27/21 11:49:00 EDT, [place], Partial fill upon patient request if the [...] Care team information Care Team Personnel Name: vIis GUIDRY, Nathaly Bernard Position: [facility] BIOANALYST MD Member Role: Lifetime BIOANALYST Physician Address: Address: [address] [place] [address] [facility] [place] [address]- Name: Linette JOSE, January [facility] Position: Reference Physician Member Role: PCP Address: Address: [address] [place] [address]- Care Team Related Persons Name: HARMAN STEVENSON Address: home [address] [place] [address] Name: MARLIN CARMONA
--- OUTSIDE RECORDS SUMMARY | 2023-06-06 17:32 | XMS_ITS | Continuity of Care Document ---
Author Name Unknown Organization [facility] Address [address] [place] [address]- Care Team Providers Care Tearoom Host Name Role Phone Linette RN, January [facility] Primary Care Ph ysician Encounter [facility] Date(s): 10/18/22 - 11/17/22 [facility] [address] [place] [address]- Attending Physician: AdmEstrella gonzalez Admitting Physician: AdmtrEstrella Referring Physician: Admtr, Ar8 [...] 07/27/19 13:50:52 EDT, Route to Pharmacy Electronically, [id number], [facility]/pharmacy #1095 Start Date: 07/27/19 Stop Date: [...] 07/27/19 13:53:05 EDT, Route to Pharmacy Electronically, [id number], [facility]/pharmacy #1095 Start Date: 07/27/19 Stop Date: [...] Daily, 0 Refills, Maintenance, 12/27/21 11:49:00 EDT, [place], Partial fill upon patient request if the [...] Care team information Care Team Personnel Name: Marilyn Waller RN Position: [facility] RN Member Role: Primary Care Nurse Name: Nathaly Langston MD Position: [facility] FLOOR WINDER MD Member Role: Lifetime FLOOR WINDER Physician Address: Address: [address] [place] [address] [facility] [employer] [place] [address]- Name: Hortensia Hernandez RN Position: [facility] RN Member Role: Primary Care Nurse Name: Linette JOSE, Anu Warner Position: Reference Physician Member Role: PCP Address: Address: [address] [place] [address]- Care Team Related Persons Name: HARMAN STEVENSON Address: home [address] [place] [address] Name: MARLIN CARMONA
--- OUTSIDE RECORDS SUMMARY | 2023-06-06 17:32 | XMS_ITS | Continuity of Care Document ---
Author Name Unknown Organization [facility] Gastroenter ology Address [address] [place] [address]- Care Team Providers Care Roll Wrapper Name Role Phone Linette JOSE, January Alana Primary Care Ph ysician Encounter [id number] Date(s): 02/12/23 - 04/25/23 [facility] Gastroenterology [address] [place] [address]- Attending Physician: Von Haque MD Admitting Physician: [...] 07/27/19 13:50:52 EDT, Route to Pharmacy Electronically, [id number], [facility]/pharmacy #[id number] Start Date: 07/27/19 Stop Date: [...] 07/27/19 13:53:05 EDT, Route to Pharmacy Electronically, [id number], [facility]/pharmacy #1095 Start Date: 07/27/19 Stop Date: [...] Daily, 0 Refills, Maintenance, 12/27/21 11:49:00 EDT, [place], Partial fill upon patient request if the [...] Personnel Name: Sridhar RN, Marilyn Gao Position: [facility] AMB Nurse Member Role: Primary Care Nurse Name: Ivis GUIDRY, Nathaly Bernard Position: [facility] OFFSET LITHOGRAPHIC PRESS OPERATOR MD Member Role: Lifetime OFFSET LITHOGRAPHIC PRESS OPERATOR Physician Address: Address: [address] [place] [address] [facility] [employer] [place] [address]- Name: Hortensia Hernandez RN Position: [facility] ED RN W/OE and Tasks Member Role: Primary Care Nurse Name: Linette JOSE, Anu Warner Position: Reference Physician Member Role: PCP Address: Address: [address] [place] [address]- Care Team Related Persons Name: HARMAN STEVENSON Address: home [address] [place] [address] Name: MARLIN CARMONA
--- OUTSIDE RECORDS SUMMARY | 2023-06-06 17:32 | XMS_ITS | Continuity of Care Document ---
Author Name Unknown Organization [facility] oenterology Address [address] [place] [address]- Care Team Providers Care Corporate Human Resources Manager Name Role Phone Linette JOSE, January Alana Primary Care Ph ysician En[place] [facility] Date(s): 08/08/22 - 09/07/22 [facility] Gastroenterology [address] [place] [address]- Allergies, Adverse Reactions, Alerts Substance Reaction Severity [...] 07/27/19 13:50:52 EDT, Route to Pharmacy Electronically, [id number], [facility]/pharmacy #1095 Start Date: 07/27/19 Stop Date: [...] 07/27/19 13:53:05 EDT, Route to Pharmacy Electronically, [id number], [facility]/pharmacy #1095 Start Date: 07/27/19 Stop Date: [...] Daily, 0 Refills, Maintenance, 12/27/21 11:49:00 EDT, [place], Partial fill upon patient request if the [...] Personnel Name: Ivis GUIDRY, Nathaly Bernard Position: [facility] RESTORATIVE AIDE MD Member Role: Lifetime RESTORATIVE AIDE Physician Address: Address: [address] [place] [address] [employer] [place] [address]- Name: Linette JOSE, January [facility] Position: Reference Physician Member Role: PCP Address: Address: [address] [place] [address]- Care Team Related Persons Name: HARMAN STEVENSON Address: home [address] [place] [address] Name: MARLIN CARMONA
--- OUTSIDE RECORDS SUMMARY | 2023-06-06 17:32 | XMS_ITS | Continuity of Care Document ---
Author Name Unknown Organization [facility] Address [address] [place] [address] [address] [place] [address]- Care Team Providers Care Angle Shearer Name Role Phone Anay Vazquez NP Primary Care Physician En[place] [facility] Date(s): 12/22/19 - 01/01/[address] [place] [address]- [facility] Attending Physician: Admtr, Ar8 Admitting Physician: Admtr, [...] 12/02/19 10:01:00 EST, Route to Pharmacy Electronically, [facility]/pharmacy #1095, 151, cm, 12/02/19 8:49:00 EST, [...] 07/27/19 13:50:36 EDT, Route to Pharmacy Electronically, [id number], [facility]/pharmacy #[id number] Start Date: 07/27/19 Stop Date: 09/25/19 Status: Ordered losartan 50 mg oral tablet 50 mg, 1, tablet, By Mouth, Daily, # 30 tablet, Refills 1, Tot. Refills 1, Maintenance, 07/27/19 13:50:52 EDT, Route to Pharmacy Electronically, [id number], [facility] Start Date: 07/27/19 Stop Date: [...] 07/27/19 13:53:05 EDT, Route to Pharmacy Electronically, [id number], [facility]/pharmacy #1095 Start Date: 07/27/19 Stop [...]
--- OUTSIDE RECORDS SUMMARY | 2023-06-06 17:32 | XMS_ITS | Continuity of Care Document ---
Author Name Unknown Organization [facility] Address [address] [place] [address]- Care Team Providers Care Forging Roll Operator Name Role Phone Linette JOSE, January Alana Primary Care Ph ysician En[place] [facility] Date(s): 05/28/23 - 05/28/[address] [address]- Discharge Disposition: A-D/C Home Attending Physician: Jame Arboleda MD Admitting Physician: Jame Arboleda MD Referring Physician: Not on Staff, Referring [...] 07/27/19 13:50:52 EDT, Route to Pharmacy Electronically, [id number], [facility]/pharmacy #1095 Start Date: 07/27/19 Stop [...] 07/27/19 13:53:05 EDT, Route to Pharmacy Electronically, [id number], [facility]/pharmacy #1095 Start Date: 07/27/19 Stop [...] Daily, 0 Refills, Maintenance, 12/27/21 11:49:00 EDT, [place], Partial fill upon patient request if the [...] Most recent to oldest [Reference Range]: 1 2 Height 152 cm (05/28/23 5:19 PM) 152 cm (05/28/23 5:16 PM) Weight 172 kg (05/28/23:19 PM) 172 kg (05/28/23 5:16 PM) Oxygen Saturation [94-100 %] 99 % (05/28/23 5:16 PM) Pulse Rate [55-90 bpm] 103 bpm *H* (05/28/23 5:16 PM) Body Mass Index [18.5-24.99 kg/m2] 74.45 kg/m2 *>HHI* (05/28/23 5:16 PM) Blood Pressure [90-138/55-84 mm Hg] 165/ 128mm Hg *H* (05/28/23:19 PM) Respiratory Rate [16-30 br/min] 18 br/mi n (05/28/23 5:16 PM) Temperature [96.8-100.4 DegF] 98.0 DegF (05/28/23 5:16 PM) Mode of Delivery (Oxygen) Room air (05/28/23 5:16 PM) Blood pressure sites Arm, right (05/28/23 5:19 PM) Temperature Route Temporal (05/28/23 5:16 PM) Dry Weight 172 kg (05/28/23 5:19 PM) 172 kg (05/28/23 5:16 PM) Social History Social History Type Response Smoking Status Never smoker; Tobacc o user in household: No entered on: 09/30/14 Sex Note * Jame Arboleda MD: PERFORM Event Display: Patient Education Leaflets Authored Date: [id number] Depression ?? [id number] Depression Depression is a very common mental health problem. It's not just a state of being unhappy or sad. It's a true disease. The cause seems to be linked to a change in chemicals that send signals in the brain. These things increase a person???s risk of depression: ??? A family history of depression, alcoholism, or suicide ??? Chronic illness ??? Chronic pain ???Migraine headaches ??? High emotional stress Depression may be easier to see in others. You may have a hard time seeing it in yourself. It can show in many physical and emotional ways. These include: ??? Loss of appetite ??? Overeating ??? Not being able to sleep ??? Sleeping too much ??? A lot of tiredness not linked to physical activity ??? Restlessness or irritability ??? Slowness of movement or speech ??? Feeling sad or withdrawn ??? Loss of interest in things you once enjoyed ??? Trouble??concentrating, remembering,??or making decisions ??? Thoughts of harming or killing yourself, or thoughts that life is not worth living ??? Low self-esteem The treatment for depression may include both medicine and psychotherapy. Antidepressants can ease symptoms. They can also make it easier for you to do daily tasks. Therapy can offer emotional support. It can also help you understand things that may be causing the depression. Home care ??? Ongoing care and support help people manage this disease. Find a healthcare provider and therapist who meet your needs. Get help when you feel like you may be getting ill. ??? Be kind to yourself. Make it a point to do things that you enjoy. This may be gardening, walking in nature, or going to a movie. Reward yourself for small successes. ??? Take care of your body. Eat a balanced diet. Eat foods low in saturated fat. Eat a lot of fruits and vegetables. Exercise at least 3 times a week for 30 minutes. Even mild to moderate exercise like brisk walking can make you feel better. ??? Take medicine as prescribed. Don't stop your medicine or change the dose unless you talk with your healthcare provider. ??? Once you start medicine, expect your symptoms to get better slowly. Depression will lift over time. It doesn't get better right away. Ask your healthcare provider how long it will take for a medicine to start working. ??? Don't share your medicine. Don???t use someone else's medicine. ??? Tell your healthcare providers all the medicines you take. This includes prescription and jczg-few-mlfyhwa medicines. It includes vitamins and herbal supplements. Some supplements caninteract with medicines. They can cause dangerous side effects. Ask your pharmacist about medicine interactions when you have questions. ??? Don't make major decisions until you feel better. This incl udes things such as a job change, a divorce, or a marriage. ??? Don't drink alcohol. It can make depression worse. ??? Talk with your family and??trusted friends??about your feelings and thoughts.??Ask them to help you notice behavior changes early. You can then get help and, if needed, your medicine can be changed. ??? Talk with your healthcare provider if you are not getting better. They may change your medicine or have you try another treatment. ?? Follow-up care Follow up with your healthcare provider as advised. ?? Crisis care Call 988 if you have thoughts of harming yourself or others. When you call or text [phone], you will beconnected to trained crisis counselors. An online chat option is also available. [employer] is free and available 06/05. 988 counselors will work with [facility] to help you get the care you need. Call 911 if you: ??? Have trouble breathing ??? Are??very confused ??? Feel very drowsy or have??trouble awakening ??? Faint ??? Have new chest pain that becomes more severe, lasts longer, or spreadsinto your shoulder, arm, neck, jaw, or back ?? When to get medical care Call your healthcare provider right away if any of these happen: ??? Your symptoms get worse ??? You have extreme depression, fear, anxiety, or anger toward yourself or others ??? You feel out of control ??? You feel that you may try to harm yourself or another ??? You hear voices other people don't hear ??? You see things other people don't see ??? You don't sleep or eat for 3 days in a row ??? Friends or family express concern over your behavior and ask you to get help ?? Last Reviewed Date: 2022 ?? [employer]. All rights reserved. This information is not intended as a substitute for professional medical care. Always follow your healthcare professional's instructions. ?? Patient Care team information Care Team Personnel Name: Sridhar RN, Marilyn Gao Position: [facility] AMB Nurse Member Role: Primary Care Nurse Name: Nathaly Langston MD Position: [facility] CERTIFIED ALCOHOL COUNSELOR MD Member Role: Lifetime CERTIFIED ALCOHOL COUNSELOR Physician Address: Address: [address] [place], [place] [address]s [facility] [place] [address]- Name: Hortensia Hernandez RN Position: [facility] ED RN W/OE and Tasks Member Role: Primary Care Nurse Name: Linette JOSE, Anu Warner Position: Reference Physician Member Role: PCP Address: Address: [address] [place] [address]- Name: Sushma Romero RN Position: [facility] ED RN W/OE and Tasks Member Role: Patient Care Provider Name: Jame Arboleda MD Position: [facility] ED Medicine MD Member Role: Admitting Physician Address: Address: [address] [place] [address]- Care Team Related Persons Name: HARMAN STEVENSON Address: home [address] [place] [address] Name: MARLIN CARMONA
--- OUTSIDE RECORDS SUMMARY | 2023-06-06 17:32 | XMS_ITS | Continuity of Care Document ---
Author Name Unknown Organization [facility] Earlier [facility] Address [address] [place] [address]- Care Team Providers Care Boilermaker Name Role Phone Linette RN, January [facility] Primary Care Ph ysician Encounter [facility] Date(s): 08/08/22 - 11/17/22 [facility] [address] [place] [address]- Attending Physician: Ondina Johnson MD Allergies, Adverse Reactions, Alerts Substance Reaction [...] 07/27/19 13:50:52 EDT, Route to Pharmacy Electronically, [id number], [facility]/pharmacy #[id number] Start Date: 07/27/19 Stop Date: [...] 07/27/19 13:53:05 EDT, Route to Pharmacy Electronically, [id number], [facility]/pharmacy #[id number] Start Date: 07/27/19 Stop Date: [...] Daily, 0 Refills, Maintenance, 12/27/21 11:49:00 EDT, [place], Partial fill upon patient request if the [...] Personnel Name: Sridhar JOSE, Marilyn Gao Position: S RN Member Role: Primary Care Nurse Name: Nathaly Langston MD Position: [facility] ENGRAVER MD Member Role: Lifetime ENGRAVER Physician Address: Address: [address] [place] [address] Women[facility] [place] [address]- Name: Hortensia Hernandez RN Position: S RN Member Role: Primary Care Nurse Name: Linette JOSE, Anu Warner Position: Reference Physician Member Role: PCP Address: Address: [address] [place] [address]- Care Team Related Persons Name: HARMAN STEVENSON Address: home [address] [place] [address] Name: MARLIN CARMONA
--- OUTSIDE RECORDS SUMMARY | 2023-06-06 17:33 | XMS_ITS | Continuity of Care Document ---
Author Name Unknown Organization [facility] Address [address] [place] [address]- Care Team Providers Care Choral Teacher Name Role Phone Linette RN, January Alana Primary Care Ph ysician [place] [facility] [place]/17/22 - 09/16/[address] [address]- Attending Physician: Zuleima Cheng MD Admitting Physician: [...] 07/27/19 13:50:52 EDT, Route to Pharmacy Electronically, [id number], [facility]/pharmacy #[id number] Start Date: 07/27/19 Stop Date: [...] 07/27/19 13:53:05 EDT, Route to Pharmacy Electronically, [id number], [facility]/pharmacy #[id number] Start Date: 07/27/19 Stop Date: [...] Daily, 0 Refills, Maintenance, 12/27/21 11:49:00 EDT, [place], Partial fill upon patient request if the [...] Team Personnel Name: Nathaly Langston MD Position: [facility] INDUSTRIAL DESIGN INTERN MD Member Role: Lifetime INDUSTRIAL DESIGN INTERN Physician Address: Address: [address] [place] [address] [facility] [address]- Name: Linette JOSE, January [facility] Position: Reference Physician Member Role: PCP Address: Address: [address] [place] [address]- Care Team Related Persons Name: HARMAN STEVENSON Address: home [address] [place] [address] Name: MARLIN CARMONA
--- OUTSIDE RECORDS SUMMARY | 2023-06-06 17:33 | XMS_ITS | Continuity of Care Document ---
Author Name Unknown Organization [facility] Address [address] [place] [address]- Care Team Providers Care Crm Coordinator Name Role Phone George LEDEZMA, Anay Brumfield Primary Care Physician Encounter [facility] Date(s): 09/03/19 - 10/29/19 [facility] [address] [place] [address] Attending Physician: Cristhian Strong MD Admitting Physician: Cristhian Strong MD Referring Physician: Not on Staff, Referring [...] 07/27/19 13:50:17 EDT, Route to Pharmacy Electronically, [id number], [facility]/pharmacy #[id number] Start Date: 07/27/19 Status: Ordered folic acid 1 mg oral tablet 1 mg, 1, tablet, By Mouth, Daily, # 30 tablet, Refills 1, Tot. Refills 1, Maintenance, 07/27/19 13:50:27 EDT, Route to Pharmacy Electronically, [id number], [facility]/pharmacy #[id number] Start Date: 07/27/19 Stop Date: 09/25/19 Status: Ordered loratadine 10 mg oral tablet 10 mg, 1, tablet, By Mouth, Daily, # 30 tablet, Refills 1, Tot. Refills 1, Maintenance, 07/27/19 13:50:36 EDT, Route to Pharmacy Electronically, [id number], [facility]/pharmacy #1095 Start Date: 07/27/19 Stop Date: 09/25/19 Status: Ordered losartan 50 mg oral tablet 50 mg, 1, tablet, By Mouth, Daily, # 30 tablet, Refills 1, Tot. Refills 1, Maintenance, 07/27/19 13:50:52 EDT, Route to Pharmacy Electronically, [id number], [facility]/pharmacy #1095 Start Date: 07/27/19 Stop Date: [...] 07/27/19 13:53:05 EDT, Route to Pharmacy Electronically, [id number], [facility]/pharmacy #[id number] Start Date: 07/27/19 Stop Date: 09/25/19 Status: Ordered QUEtiapine 25 mg oral tablet 25 mg, 1, tablet, By Mouth, 3 times a day, PRN, for agitation or anxiety as needed, # 50 tablet, Refills 1, Tot. Refills 1, Maintenance, Agitation, 07/27/19 13:54:21 EDT, Route to Pharmacy Electronically, [id number], [facility]... Start Date: 07/27/19 Status: Ordered Problem [...]
--- OUTSIDE RECORDS SUMMARY | 2023-06-06 17:33 | XMS_ITS | Continuity of Care Document ---
Author Name Unknown Organization [facility] oenterology Address [address] [place] [address]- Care Team Providers Care Coordinating Producer Name Role Phone Linette RN, January Alana Primary Care Ph ysician Encounter [facility] Date(s): 08/17/22 - 09/16/22 [facility] [address] [place] [address]- Allergies, Adverse Reactions, Alerts Substance Reaction Severity [...] 07/27/19 13:50:52 EDT, Route to Pharmacy Electronically, [id number], [facility]/pharmacy #1095 Start Date: 07/27/19 Stop Date: [...] 07/27/19 13:53:05 EDT, Route to Pharmacy Electronically, [id number], [facility]/pharmacy #1095 Start Date: 07/27/19 Stop Date: [...] Daily, 0 Refills, Maintenance, 12/27/21 11:49:00 EDT, [place], Partial fill upon patient request if the [...] Personnel Name: Ivis GUIDRY, Nathaly Bernard Position: [facility] RADIOLOGIST PHYSICIAN MD Member Role: Lifetime RADIOLOGIST PHYSICIAN Physician Address: Address: [address] [place] [address] Women[facility] [place] [address]- Name: Linette JOSE, January [facility] Position: Reference Physician Member Role: PCP Address: Address: [address] [place] [address]- Care Team Related Persons Name: HARMAN STEVENSON Address: home [address] [place] [address] Name: MARLIN CARMONA
--- OUTSIDE RECORDS SUMMARY | 2023-06-06 17:33 | XMS_ITS | Continuity of Care Document ---
Author Name Unknown Organization [facility] Address [address] [place] [address] [address] [place] [address]- Care Team Providers Care Electorate Officer Name Role Phone George LEDEZMA, Anay Brumfield Primary Care Physician En[facility] Date(s): 12/08/19 - 02/04/20 [facility] Surgical [address] [place] [address]- [facility] Attending Physician: Yuliya Coppola MD Referring Physician: Zuleima Cheng MD Allergies, [...] 12/02/19 10:01:00 EST, Route to Pharmacy Electronically, [facility]/pharmacy #1095, 151, cm, 12/02/19 8:49:00 EST, Height, [...] 07/27/19 13:50:36 EDT, Route to Pharmacy Electronically, [id number], [facility]/pharmacy #[id number] Start Date: 07/27/19 Stop Date: 09/25/19 Status: Ordered losartan 50 mg oral tablet 50 mg, 1, tablet, By Mouth, Daily, # 30 tablet, Refills 1, Tot. Refills 1, Maintenance, 07/27/19 13:50:52 EDT, Route to Pharmacy Electronically, [id number], [facility]/pharmacy #1095 Start Date: 07/27/19 [...] 07/27/19 13:53:05 EDT, Route to Pharmacy Electronically, [id number], [facility]/pharmacy #1095 Start Date: 07/27/19 [...]
--- OUTSIDE RECORDS SUMMARY | 2023-06-06 17:33 | XMS_ITS | Continuity of Care Document ---
Author Name Unknown Organization [facility] Address [address] [place] [address] [address] [place] [address]- Care Team Providers Care Spectroscopist Name Role Phone George LEDEZMA, Anay Brumfield Primary Care Physician [place] [facility] [place] 12/08/19 - 01/21/20 [facility] [address] [place] [address]- [facility] Attending Physician: Yuliya Coppola MD Referring Physician: [...] 12/02/19 10:01:00 EST, Route to Pharmacy Electronically, [facility]/pharmacy #1095, 151, cm, 12/02/19 8:49:00 EST, Height, [...] 07/27/19 13:50:36 EDT, Route to Pharmacy Electronically, [id number], [facility]/pharmacy #1095 Start Date: 07/27/19 Stop Date: 09/25/19 Status: Ordered losartan 50 mg oral tablet 50 mg, 1, tablet, By Mouth, Daily, # 30 tablet, Refills 1, Tot. Refills 1, Maintenance, 07/27/19 13:50:52 EDT, Route to Pharmacy Electronically, [id number], [facility]/pharmacy #1095 Start Date: 07/27/19 Stop Date: 09/25/19 [...] 07/27/19 13:53:05 EDT, Route to Pharmacy Electronically, [id number], [facility]/pharmacy #1095 Start Date: 07/27/19 Stop Date: 09/25/19 [...]
--- OUTSIDE RECORDS SUMMARY | 2023-06-06 17:33 | XMS_ITS | Continuity of Care Document ---
Author Name Unknown Organization [facility] oenterology Address [address] [place] [address]- Care Team Providers Care Day Habilitation Supervisor Name Role Phone Anay Vazquez NP Primary Care Physician Encounter [facility] Date(s): 05/10/20 - 06/09/20 [facility] Gastroenterology [address] [place] [address]- [facility] Allergies, Adverse Reactions, Alerts Substance Reaction Severity [...] 05/10/20 20:32:00 EDT, Route to Pharmacy Electronically, [facility], 151, cm, 12/02/19 8:49:00 EST, Height, 139, [...] 07/27/19 13:50:36 EDT, Route to Pharmacy Electronically, [id number], [facility]/pharmacy #1095 Start Date: 07/27/19 Stop Date: 09/25/19 Status: Ordered losartan 50 mg oral tablet 50 mg, 1, tablet, By Mouth, Daily, # 30 tablet, Refills 1, Tot. Refills 1, Maintenance, 07/27/19 13:50:52 EDT, Route to Pharmacy Electronically, [id number], [facility]/pharmacy #1095 Start Date: 07/27/19 Stop [...] 07/27/19 13:53:05 EDT, Route to Pharmacy Electronically, [id number], [facility]/pharmacy #1095 Start Date: 07/27/19 Stop [...]
--- OUTSIDE RECORDS SUMMARY | 2023-06-06 17:33 | XMS_ITS | Continuity of Care Document ---
Author Name Unknown Organization [facility] Address [address] [facility] [place] [address]- Care Team Providers Care Airplane Woodworker Name Role Phone George LEDEZMA, Anay Brumfield Primary Care Physician Encounter 10/04/21 - 12/09/21 [facility] [address], [address] [place] [address]- Attending Physician: Colt Tolliver MD Admitting Physician: [...] to Pharmacy Electronically, [facility], 151, cm, 12/02/19 8:49:00 EST, Height, 139, [...] 07/27/19 13:50:36 EDT, Route to Pharmacy Electronically, [id number], [facility]/pharmacy #1095 Start Date: 07/27/19 Stop Date: 09/25/19 Status: Ordered losartan 50 mg oral tablet 50 mg, 1, tablet, By Mouth, Daily, # 30 tablet, Refills 1, Tot. Refills 1, Maintenance, 07/27/19 13:50:52 EDT, Route to Pharmacy Electronically, [id number], [facility]/pharmacy #1095 Start Date: 07/27/19 [...] 07/27/19 13:53:05 EDT, Route to Pharmacy Electronically, [id number], [facility]/pharmacy #1095 Start Date: 07/27/19 [...]
--- OUTSIDE RECORDS SUMMARY | 2023-06-06 17:33 | XMS_ITS | Continuity of Care Document ---
Author Name Unknown Organization [facility] oenterology Address [address] [place] [address]- Care Team Providers Care Dyehouse Worker Name Role Phone Linette RN, January Alana Primary Care Ph ysician En[place] [facility] Date(s): 08/16/22 - 09/15/22 [facility]astro[facility] [address] [place] [address]- Allergies, Adverse Reactions, Alerts Substance Reaction Severity [...] 07/27/19 13:50:52 EDT, Route to Pharmacy Electronically, [id number], [facility]/pharmacy #1095 Start Date: 07/27/19 Stop Date: [...] 07/27/19 13:53:05 EDT, Route to Pharmacy Electronically, [id number], [facility]/pharmacy #1095 Start Date: 07/27/19 Stop Date: [...] Daily, 0 Refills, Maintenance, 12/27/21 11:49:00 EDT, [place], Partial fill upon patient request if the [...] Personnel Name: Ivis GUIDRY, Nathaly Bernard Position: [facility] CONSERVATION SPECIALIST MD Member Role: Lifetime CONSERVATION SPECIALIST Physician Address: Address: [address] [place] [address] Women's Health [place] [address]- Name: Linette JOSE, January [facility] Position: Reference Physician Member Role: PCP Address: Address: [address] [place] [address]- Care Team Related Persons Name: HARMAN STEVENSON Address: home [address] [place] [address] Name: MARLIN CARMONA
--- OUTSIDE RECORDS SUMMARY | 2023-06-06 17:33 | XMS_ITS | Continuity of Care Document ---
Author Name Unknown Organization [facility] ter Address [address] [place] [address]- Care Team Providers Care Digital Press Operator Name Role Phone George LEDEZMA, Anay Brumfield Primary Care Physician En[place] [facility] Date(s): 08/26/19 - 09/27/[address] [address]- [facility] Attending Physician: Anay Vazquez NP Admitting Physician: [...] 07/27/19 13:50:17 EDT, Route to Pharmacy Electronically, [id number], [facility]/pharmacy #1095 Start Date: 07/27/19 Status: Ordered folic acid 1 mg oral tablet 1 mg, 1, tablet, By Mouth, Daily, # 30 tablet, Refills 1, Tot. Refills 1, Maintenance, 07/27/19 13:50:27 EDT, Route to Pharmacy Electronically, [id number], [facility]/pharmacy #1095 Start Date: 07/27/19 Stop Date: 09/25/19 Status: Ordered loratadine 10 mg oral tablet 10 mg, 1, tablet, By Mouth, Daily, # 30 tablet, Refills 1, Tot. Refills 1, Maintenance, 07/27/19 13:50:36 EDT, Route to Pharmacy Electronically, [id number], [facility]/pharmacy #1095 Start Date: 07/27/19 Stop Date: 09/25/19 Status: Ordered losartan 50 mg oral tablet 50 mg, 1, tablet, By Mouth, Daily, # 30 tablet, Refills 1, Tot. Refills 1, Maintenance, 07/27/19 13:50:52 EDT, Route to Pharmacy Electronically, [id number], [facility] Start Date: 07/27/19 Stop Date: [...] 07/27/19 13:53:05 EDT, Route to Pharmacy Electronically, [id number], [facility]/pharmacy #1095 Start Date: 07/27/19 Stop Date: 09/25/19 Status: Ordered QUEtiapine 25 mg oral tablet 25 mg, 1, tablet, By Mouth, 3 times a day, PRN, for agitation or anxiety as needed, # 50 tablet, Refills 1, Tot. Refills 1, Maintenance, Agitation, 07/27/19 13:54:21 EDT, Route to Pharmacy Electronically, [id number], [facility] Start Date: 07/27/19 Status: Ordered Problem [...]
--- OUTSIDE RECORDS SUMMARY | 2023-06-06 17:33 | XMS_ITS | Continuity of Care Document ---
Author Name Unknown Organization [facility] Address [address] [place] [address]- Care Team Providers Care Internet Ecommerce Specialist Name Role Phone Linette JOSE, January Alana Primary Care Ph ysician [id number] Date(s[facility] 08/08/22 - 11/03/22 [facility] [address] [place] [address]- Attending Physician: Beth Avelar Admitting Physician: Beth Avelar Referring Physician: Linette JOSE, January Alana Allergies, [...] 07/27/19 13:50:52 EDT, Route to Pharmacy Electronically, [id number], [facility]/pharmacy #1095 Start Date: 07/27/19 Stop [...] 07/27/19 13:53:05 EDT, Route to Pharmacy Electronically, [id number], [facility]/pharmacy #1095 Start Date: 07/27/19 Stop [...] Daily, 0 Refills, Maintenance, 12/27/21 11:49:00 EDT, [place], Partial fill upon patient request if the [...] Personnel Name: Sridhar JOSE, Marilyn Gao Position: [facility] RN Member Role: Primary Care Nurse Name: Nathaly Langston MD Position: [facility] METAL FABRICATOR APPRENTICE MD Member Role: Lifetime METAL FABRICATOR APPRENTICE Physician Address: Address: [address] [place] [address] [facility] Insurance [place] [address]- Name: Hortensia Hernandez RN Position: [facility] RN Member Role: Primary Care Nurse Name: Linette JOSE, Anu Warner Position: Reference Physician Member Role: PCP Address: Address: [address] [place] [address]- Care Team Related Persons Name: HARMAN STEVENSON Address: [address] [place] [address] Name: MARLIN CARMONA
--- OUTSIDE RECORDS SUMMARY | 2023-06-06 17:33 | XMS_ITS | Continuity of Care Document ---
Author Name Unknown Organization [facility] oenterology Address [address] [place] [address]- Care Team Providers Care Meeting Manager Name Role Phone Anay Vazquez NP Primary Care Physician En[facility] Date(s): 12/02/19 - 12/12/19 [facility] Gastroenter[facility] [address] [place] [address]- [facility] Attending Physician: Admtr, Ar8 Admitting Physician: Admtr, Justo8 Referring Physician: Admtr, Ar8 Allergies, Adverse Reactions, [...] 10:01:00 EST, Route to Pharmacy Electronically, [facility]/pharmacy #1095, 151, cm, 12/02/19 8:49:00 EST, Height, [...] 07/27/19 13:50:36 EDT, Route to Pharmacy Electronically, [id number], [facility]/pharmacy #1095 Start Date: 07/27/19 Stop Date: 09/25/19 Status: Ordered losartan 50 mg oral tablet 50 mg, 1, tablet, By Mouth, Daily, # 30 tablet, Refills 1, Tot. Refills 1, Maintenance, 07/27/19 13:50:52 EDT, Route to Pharmacy Electronically, [id number], [facility] Start Date: 07/27/19 Stop Date: [...] 07/27/19 13:53:05 EDT, Route to Pharmacy Electronically, [id number], [facility]/pharmacy #1095 Start Date: 07/27/19 Stop Date: 09/25/19 [...]
--- OUTSIDE RECORDS SUMMARY | 2023-06-06 17:33 | XMS_ITS | Continuity of Care Document ---
Author Name Unknown Organization [facility] em Address Unknown Care Team Providers Care Lithograph Printer Name Role Phone Linette RN, January Alana Primary Care Ph ysician Encounter [facility] Date(s): 08/15/22 - 08/22/22 [facility] Encounter Diagnosis Splenic cyst(Discharge Diagnosis) - 08/15/22 Attending Physician: Leila Cuello MD Admitting Physician: Leila Cuello MD Referring Physician: Linette JOSE, January Alana [...] 07/27/19 13:50:52 EDT, Route to Pharmacy Electronically, [id number], [facility]/pharmacy #[id number] Start Date: 07/27/19 Stop Date: 09/25/19 [...] 07/27/19 13:53:05 EDT, Route to Pharmacy Electronically, [id number], [facility]/pharmacy #[id number] Start Date: 07/27/19 Stop Date: 09/25/19 [...] Daily, 0 Refills, Maintenance, 12/27/21 11:49:00 EDT, [place], Partial fill upon patient request if the [...] Active Urge incontinence of urine Confirmed Active Diagnosis Diagnosis Type Effective Dates Health Status Cl inical Service Informant Splenic cyst Discharge Diagnosis 08/15/22 Vital Signs Most recent to oldest [Reference Range]: 1 Height 151 cm (08/15/22 3:44 PM) Weight 164.54 kg (08/15/22 3:44 PM) Oxygen Saturation [94-100 %] 97 % (08/15/22 3:44 PM) Pulse Rate [55-90 bpm] 78 bpm (08/15/22 3:44 PM) Body Mass Index [18.5-24.99 kg/m2] 72.16 kg/m2 *>HHI* (08/15/22 3:44 PM) Blood Pressure [90-138/55-84 mm Hg] 138/ 92mm Hg (08/15/22 3:44 PM) Respiratory Rate [16-30 br/min] 20 br/mi n (08/15/22 3:44 PM) Mode of Delivery (Oxygen) Room air (08/15/22 3:44 PM) Blood pressure sites Arm, left (08/15/22 3:44 PM) Weight Obtained Via Patient/family state d (08/15/22 3:44 PM) Social History Social History Type Response Smoking Status Never smoker; Tobacc o user in household: No entered on: 09/30/14 Sex Note * Jennifer Recinos: PERFORM, SIGN, VERIFY Event Display: Patient Education/Instruction Authored Date: [id number] [facility] *[facility] Clinical Summary Name SUSHANT CARMONA Age 37 Years 1985 PCP Linette JOSE, Anu Alana PCP Visit Date 08/15/2022 15:31:00 Additional Instructions: Scheduled Appointments?? Future Appointments ?*[facility]tn ?[address]??[place],??[place],??[address] ?Phone:??--?Fax:??-- ?Appt. Date:??10/18/2022?12:45 PM ?Scheduled Provider:??Alex GUIDRY, Ondina James Follow-Up Instructions ?? Diagnosis Medications: Please continue your medications until treatment is completed or stopped by your provider. Discuss any questions related to medications with your provider. Medications to Continue with No Changes These medications were not printed or sent to your pharmacy Amlodipine (amLODIPine 5 mg oral tablet) 1 tab(s) Oral Daily. Next Dose: Atomoxetine (atomoxetine 40 mg oral capsule) 1 capsule Oral Daily in the morning. Next Dose: brexpiprazole (Rexulti 3 mg oral tablet) 1 tab(s) Oral Daily. Patient states she is being tapered off of this medication. Next Dose: BusPIRone (busPIRone 15 mg oral tablet) 2 tab(s) Oral twice a day. Next Dose: BusPIRone (busPIRone 30 mg oral tablet) 1 tab(s) Oral twice a day. Next Dose: Cetirizine (ZyrTEC 10 mg oral tablet) 1 tab(s) Oral Daily. Next Dose: Cholecalciferol (cholecalciferol 1000 intl units oral capsule) 1 capsule Oral every week. 50,0000 units. Refills: 1. Next Dose: Cholestyramine (Cholestyramine Light 4 g/5.7 g oral powder for reconstitution) 4 gram Oral twice a day. Refills: 1. Next Dose: Divalproex Sodium (Depakote 500 mg oral enteric coated tablet) 1 tab(s) Oral Daily. Next Dose: fluticasone-vilanterol (Breo Ellipta 200 mcg-25 mcg/inh inhalation powder) 1 puff(s) Inhalation Daily. Next Dose: Ibuprofen (ibuprofen 600 mg oral tablet) 1 tab(s) Oral 4 times a day as needed for pain. Next Dose: Irbesartan (irbesartan 300 mg oral tablet) 1 tab(s) Oral Daily. Next Dose: Losartan (losartan 50 mg oral tablet) 1 tab(s) Oral Daily for 30 Days. Refills: 1. Next Dose: Metformin (metFORMIN 500 mg oral tablet) 1 tab(s) Oral Daily before breakfast. Next Dose: Multivitamin (multivitamin Multiple Vitamins oral tablet) 1 tab(s) Oral Daily. please ask for addiitonal refills at ov. Refills: 1. Next Dose: Norethindrone (norethindrone 0.35 mg oral tablet) 1 tab(s) Oral Daily. Next Dose: Omeprazole (omeprazole 20 mg oral enteric coated capsule) 1 capsule Oral Daily for 30 Days. Refills: 1. Next Dose: Oxybutynin (oxybutynin 15 mg/24 hr oral tablet, extended release) 1 tab(s) Oral Daily. Next Dose: Propranolol (propranolol 60 mg oral capsule, extended release) 1 capsule Oral Daily for 30 Days. Refills: 1. Next Dose: Sertraline (sertraline 100 mg oral tablet) 1 tab(s) Oral Daily. Next Dose: Sumatriptan (Imitrex 50 mg oral tablet) 1 tab(s) Oral Daily as needed for migraine headache. may repeat dose after 2 hours up to a maximum of 2. Next Dose: Triamcinolone Nasal (triamcinolone 55 mcg/inh nasal spray) 1 spray(s) Nares, Both Daily. Next Dose: Allergy Info:?? Other Environmental Allergy; topiramate; hydrOXYzine Medications Given This Visit Future Orders ?No future orders Vital Signs Height 151 cm Weight 164.54 kg BMI 72.16 kg/m2 Blood Pressure 138 mm Hg/92 mm Hg Temperature Pulse Rate 78 bpm Respiratory Rate 20 br/min 02 Sat Mode of Delivery 97 %/Room air You can now view a summary of your hospital visit from the comfort of your home through a free online portal called [employer]). [employer] is a website that allows you to securely view your medical information including discharge summary, medications and follow-up visits. ??You can alsosend a secure electronic message to your doctor???s office to request appointments, renew medications or just ask a question. You can enroll at [email or web address] or register during your next office visit. Disclaimer:?? The information provided is of a general nature and is intended to be used in conjunction with the recommendations and advice of your health care practitioner. ??Every effort has been made to ensure that the information provided is accurate and complete at the time it is provided to you however, as your needs change, or, as new ??information becomes available, different or additional instructions may be required. If you have questions, please consult with your primary care provider or pharmacist, as appropriate. ??This information is not intended to serve as substitution for assessment and evaluation by a qualified health care provider. If you do not have a primary care provider, you may find a [facility] provider by calling [facility] at [phone]. For information about the plan of care including goals and instructions for your diagnosis, please see the patient education orders section of this document. Patient Education Materials?? The content of this educational material or handout may have been modified, supplemented, or adapted from its original content and format to support your individualized medical care. Patient Care team information Care Team Personnel Name: Ivis GUIDRY, Nathaly Bernard Position: [facility] ASSISTANCE COORDINATOR MD Member Role: Lifetime ASSISTANCE COORDINATOR Physician Address: Address: [address] [facility] [place] [address]- Name: Linette JOSE, January Alana Position: Reference Physician Member Role: PCP Address: Address: [address] [place] [address]- Care Team Related Persons Name: HARMAN STEVENSON Address: [address] [place] [address] Name: MARLIN CARMONA
--- OUTSIDE RECORDS SUMMARY | 2023-06-06 17:33 | XMS_ITS | Continuity of Care Document ---
Author Name Unknown Organization [facility] oenterology Address [address] [place] [address]- Care Team Providers Care Product Engineering Manager Name Role Phone Linette JOSE, January Alana Primary Care Ph ysician Encounter [facility] Date(s): 12/05/22 - 04/04/23 [facility] [address] [place] [address]- Attending Physician: Jim LEDEZMA, Neris Padilla Admitting Physician: Jim LEDEZMA, Neris Padilla Referring Physician: Linette JOSE, January Alana Allergies, [...] 02/10/07 Recorded 1Result Comment: [09/16/2017] done at [facility] 2Result Comment: [06/02/2014] Dr. Rosas Medications [...] 07/27/19 13:50:52 EDT, Route to Pharmacy Electronically, [id number], [facility]/pharmacy #[id number] Start Date: 07/27/19 Stop [...] 07/27/19 13:53:05 EDT, Route to Pharmacy Electronically, [id number], [facility]/pharmacy #[id number] Start Date: 07/27/19 Stop [...] Daily, 0 Refills, Maintenance, 12/27/21 11:49:00 EDT, [place], Partial fill upon patient request if the [...] Personnel Name: Sridhar RN, Marilyn Gao Position: [facility] AMB Nurse Member Role: Primary Care Nurse Name: Ivis GUIDRY, Nathaly Bernard Position: [facility] IMPLEMENTATION CONSULTANT MD Member Role: Lifetime IMPLEMENTATION CONSULTANT Physician Address: Address: [address] [place] [address] [facility] [place] [address]- Name: Hortensia Hernandez RN Position: [facility] ED RN W/OE and Tasks Member Role: Primary Care Nurse Name: Linette JOSE, Anu Warner Position: Reference Physician Member Role: PCP Address: Address: [address] [place] [id number]- Care Team Related Persons Name: HARMAN STEVENSON Address: home [address] [place] [address] Name: MARLIN CARMONA
[2023-06-06 17:39] LABS: Amphetamine Screen Urine Not Detected (Not Detect); Barbiturates, Urine Not Detected (Not Detect); Benzodiazepines Screen Urine Not Detected (Not Detect); Cannabinoid Screen Urine Not Detected (Not Detect); Cocaine Screen Urine Not Detected (Not Detect); Fentanyl, urine Not Detected (Not Detect); Opiate Screen Urine Not Detected (Not Detect); Phencyclidine Screen Urine Not Detected (Not Detect)
[2023-06-06 17:52] LABS: Appearance Urine Clear; Color Urine Yellow; Glucose Urine UA Negative (Negative); Leukocyte Esterase Urine Negative (Negative); Nitrite Urine Negative (Negative); PH 5.5 (5.0-9.0); Specific Gravity - Urine >= 1.030 (1.005-1.025); UMIC TRIGGER UA YES; Urine Blood Negative (Negative); Urine Ketones Trace mg/dL (Negative); Urine Protein 30 (1+) mg/dL (Neg-Trace)
[2023-06-06 17:53] LABS: UPreg QC Valid YES; Urine Pregnancy NEGATIVE (NEGATIVE)
[2023-06-06 17:57] LABS: Bacteria Urine 2+ (None Seen); Hyaline Casts Urine 0-2 /LPF (0-2); RBC Urine 0-2 /HPF (0-2); WBC Urine 0-5 /HPF (0-5)
--- NOTE | 2023-06-06 18:18 | MHC.CARE ---
Von, with [facility], patient's support meter shop supervisor [phone] calls with information about patient. He reports that she was at [facility] and had a substantive reduction in the medication she takes, believes this was due to patient selectively choosing meds and frustration with medication/ perceived efficacy. She was d/c from [place] 05/05/23 and from there transitioned to [facility]. More recently, there has been some back and forth about patient wanting to be admitted to respite, vacillating between wanting to go there and also wanting to go to work. Von with [facility] reports that when patient works she is focused and not thinking about medication/ symtpoms etc but when she leaves work for home (she lives alone in an apartment in [place]) she experiences an elevation in anxiety/ depression. Currently reporting her medications aren't working. She describes liking her job, but struggling with everything else in her life feeling empty. She has a counselor/ psychiatry through [facility], Von does not have access to their names at this time. Was seeing [facility] but severed ties. Her mother is a support. Patient has a medgenie but nonetheless continues to struggle with adherence. She is [facility] involved, described as high functioning but tires easily. Her mother is a support for patient. Patient has a cat, her mother has agreed to care for the cat while she is in the ED/ for however long is needed.
[2023-06-06 18:34] LABS: MANUAL DIFF FLAG NO
[2023-06-06 18:42] LABS: Basophils Percent Auto 0.1 % (0-2); Hematocrit 38.5 % (37.0-47.0); Hemoglobin 12.5 g/dl (12.0-16.0); Imm Gran Abs Auto 0.11 X10*3/uL (0.00-0.03); Imm Gran Pct Auto 0.7 % (0.0-0.4); Lymphocytes Absolute Auto 1.8 X10*3/uL (1.2-4.9); Mean Corpuscular HGB Conc 32.5 g/dl (31.0-35.0); Mean Corpuscular Volume 83.2 fL (80.0-98.0); Mean Platelet Volume 10.2 fL (9.4-12.3); Monocytes Absolute Auto 0.5 X10*3/uL (0.1-1.2); Neutrophils Absolute Auto 12.8 x10*3/uL (2.0-8.3); Neutrophils Percent Auto 84.2 % (45-73); Platelet Count 490 X10*3/uL (160-400); Red Blood Count 4.63 X10*6/uL (4.20-5.50); Red Cell Distribution Width 14.8 % (11.0-16.0); White Blood Count 15.2 X10*3/uL (4.8-10.8)
[2023-06-06 18:46] LABS: Ethanol < 10 mg/dL
[2023-06-06 18:48] LABS: Alanine Aminotransferase 19 U/L (0-31); Albumin Level 4.1 g/dL (3.5-5.0); Alkaline Phosphatase 76 U/L (39-117); Anion Gap 14 (12-20); Aspartate Amino Transferase 8 U/L (5-31); Bilirubin Total 0.2 mg/dL (0.0-1.0); Blood Urea Nitrogen 13 mg/dL (9-16); Calcium 9.5 mg/dL (8.4-10.2); Carbon Dioxide 24 mmol/L (22-29); Chloride 104 mmol/L (96-108); Creatinine Clr Calc Pharmacy 133.3; Estimated Glomerular Filt Rate > 60; Glucose Random 157 mg/dL (60-115); Potassium 3.6 mmol/L (3.3-5.1); Sodium 138 mmol/L (135-145); Total Protein 7.6 g/dL (6.5-8.0)
--- NOTE | 2023-06-07 09:35 | MHC.CARE ---
CARE Team spoke with [facility] Marketing Production Specialist Von [phone] and updated him regarding disposition/ check in support for Pt.
== END 2023-06-07 05:46 | disposition home or self-care (01) ==
PROVIDERS: Emergency Provider Emergency Medicine; PCP Nurse Practitioner Family
DX: R45.851 Suicidal ideations (principal); F10.10 Alcohol abuse, uncomplicated; Y90.0 Blood alcohol level of less than 20 mg/100 ml; I10 Essential (primary) hypertension; E66.01 Morbid (severe) obesity due to excess calories; Z68.45 Body mass index [BMI] 70 or greater, adult; Z79.899 Other long term (current) drug therapy
CPT/HCPCS: 36415; 80053; 80307; 81001; 81025; 85025; 99284; S9485

== ENCOUNTER 2023-09-24 14:14 | Outpatient (AMB) | payer MEDICARE, MEDICAID, SELFPAY ==
--- NOTE | 2023-09-24 14:32 | A.OFFVIS_ITS ---
Intake VS Expanded 09/24/23 14:45 BP 138/74 Blood Pressure Location Rt brachial Blood Pressure Position Sitting Pulse 115 H Pulse Source Pulse Oximeter Temp 96.7 F L Temperature Source Tympanic Pulse Oximetry 94 Oxygen Delivery Method Room Air Height 4 ft 11 in Weight 382 lb BMI 77.1 Body Fat % 56.4 Body Fat Mass 215.2 Fat Free Mass 166.6 Body Water % 31.3 Body Water Mass 119.4 Muscle Mass/Score 158.2 Basal Metabolic Rate/Score 2,510 Intake Visit Reasons: (OV) Re-Est [facility] [employer] Supervisor Required: No Allergies Seasonal Allergies Allergy (Severe, Verified 10/09/21 13:46) Itchy Eyes Medication List - Last Reconciled 09/24/23 by DAVID Salgado albuterol sulfate 90 mcg/actuation (Ventolin HFA) 2 puffs inhalation Q4-6H PRN amlodipine 5 mg PO DAILY brexpiprazole (Rexulti) 3 mg PO DAILY cholestyramine (with sugar) 4 gram 4 grams PO BID doxycycline hyclate 100 mg PO BID ergocalciferol (vitamin D2) 1,250 mcg PO QWEEK fluticasone propionate 50 mcg/actuation 2 sprays intranasal DAILY pkegssdpqie-dpbyfvwiq-vefcrzsj 100-62.5-25 mcg (Trelegy Ellipta) 1 ea inhalation DAILY lorazepam 0.5 mg PO BID PRN metformin 500 mg PO BID norethindrone-e.estradiol-iron 1 mg-20 mcg ()/75 mg (7) (11/02 (28)) 1 tab PO DAILY oxcarbazepine 300 mg PO BID pantoprazole 40 mg PO QAM propranolol ER 60 mg PO DAILY sertraline 150 mg PO QAM trazodone 100 mg PO BID HPI HPI Comments History of Present Illness Details Pt is here to re-start the [facility] surgical weight loss program. She was involved in the program from July 2020 through September 2021. She unfortunately did gain approximately 42 lb during that time. However she states that she became frustrated and depressed and left the program. She returns now with increased motivation and determination to succeed with weight loss given her increased medical comorbidities and stating that she is ?not getting any younger?. Her goal is to lose weight and achieve a healthy lifestyle as well as to improve, if not resolve, obesity related medical conditions, including hypertension and sleep apnea. She reports first being concerned about her weight many years ago, highest weight to date was 382. Current weight is 382 pounds with a BMI of 77.2. She has tried multiple methods of weight loss including previous enrollment in surgical weight loss program without permanent results. She has a therapist that she sees weekly. 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 She is also being treated for LLE cellulitis with oral doxycycline and has been referred to [facility] in [place], and has an appointment 10/01/23 at 10 am She wakes at:?6 am, and goes to bed at?930 pm. Dinner is at 530 pm. Breakfast: vincentian yogurt, banana bread and coffee w flavored creamer AM snack: skip Lunch: pasta, ordering out food delivery PM snack: fruit Dinner: chicken w sweet potato, pasta garlic bread, After dinner: cookies or popcorn Other snacks: ice cream, candy, chips, Liquids: 64-80 oz water, 1 cup jamie ghazala, 1 cup OJ daily Alcohol/marijuana/tobacco intake: none Exercise: none, gym membership to [facility] Medical History Overactive bladder Morbid obesity Migraines Insomnia Hypertension Obesity Depression Anxiety Sleep apnea GERD with apnea Surgical History History of colonoscopy History of endoscopy History of incision and drainage History of ankle surgery Hx of cholecystectomy History of tonsillectomy and adenoidectomy Family History Father Hypertension Heart disease Diabetes Sleep apnea Mother Hypertension Social History Alcohol intake: never Patient Tobacco Use Status: Never used Tobacco Review of Systems Const All systems reviewed & are unremarkable except as noted in HPI and below Physical Exam Vital Signs: Last Vital Signs Temp 96.7 F L 09/24/23 14:45 Pulse 115 H 09/24/23 14:45 BP 138/74 09/24/23 14:45 Pulse Ox 94 09/24/23 14:45 Oxygen Delivery Method Room Air 09/24/23 14:45 BMI result Body Mass Index 77.1 Const General: cooperative, healthy appearing and no acute distress Orientation/consciousness: patient oriented x3 HEENT Head: Yes normal to inspection Ears: hearing grossly normal bilaterally General nose exam: Normal external nose present Face and sinus: Yes normal facial exam Eyes General: appearance normal, both eyes and all related structures Resp Effort & Inspection: normal respiratory effort Auscultation: clear to auscultation bilaterally Cardio Rate: regular rate Rhythm: regular rhythm Heart sounds: S1 normal heart sound present and S2 normal heart sound present GI Inspection: Yes normal to inspection, No distended, Yes Abdominal panniculus present and Yes obesity Palpation (GI): Soft to palpation, nontender and no guarding Auscultation: normal bowel sounds Skin General skin exam: no rashes or lesions noted Neuro General: patient oriented x3 Extrem General: Yes edema Right lower extremity: edema Details: 2+ Left lower extremity: edema Details: 2+ and lower leg (multiple open wounds) Details: pitting edema Psych Appearance: grossly normal Mental Status: mental status grossly normal Speech and movement: Normal speech and movement present Affect: normal affect Attitude: cooperative Assessment & Plan Assessment & Plan (1) Morbid obesity: Code(s): E66.01 - Morbid (severe) obesity due to excess calories Plan: This is a?38 yo female who will start our SWL program to prepare for bariatric surgery.? Blood work, h pylori , CXR, ECG, Abd US and UGI have been ordered. She is being scheduled for RD and BH initial consultations. She will start SWL classes and watch the first three videos before her next appointment. ? Adequate sleep of 7-8 hours per night discussed, awakening at 6 am and going to bed at 930 pm ? Purchase body composition analyzer scale (Renpho recommended) and check weight weekly. The best time to do this is first thing in the morning after going to the bathroom. 1. Nutritional counseling: Be sure to careful read the number of scoops per shake Start with 3 Premier Protein shakes (Silentium, Walbrent, Graceful Tables, [employer]), First shake (2 scoop in 12 oz unsweetened almond milk) at 7am-9am, Second shake (1 scoop in 8 oz unsweetened almnd milk) at 10am-12pm 2 Zone Perfect protein bars (Pollfish, [employer]) at 1pm-3pm and 4pm-6pm. Dinner at 6pm (12 forks of protein and 12 forks of salad/vegetables). Meal to include lean meat (beef, fish, pork, turkey, chicken), cooked vegetables or a salad with olive oil and/or fruits (berries, pears, apples, kiwi). Avoid salt, breads, potatoes, rice, pasta, desserts. Another shake with 1 scoop in 8 oz unsweetened almond milk at 7pm-9pm. Try to drink 64 oz of water daily and avoid soda and juices. ?2. Each shake would be drunk slowly, like coffee in a period of 2 hours. ?3. Cut each bar in 4 pieces and eat each piece in 30 min ?to make each bar last 2 hours. ?4. I emphasized the importance of measuring accurately the food portion and measure it carefully when serving the food on the plate ?5. The meal portions include 12 full-size forks of meat and 12 full-size forks of salad. You always eat the meat portion but you can replace up to half of the forks of salad/vegetables with rice, potatoes or pasta, or a fruit ?if you like. The less you do it the better weight loss will be. ?6. One full-size fork is what can be scooped on the fork without falling aside and not what can be bit with the fork. Use regular forks like those you find in a typical restaurant. ?7.? Please send me weight measurements as soon as possible and then once a week. Always include your diet and exercise plan. Alternatively come weekly at the office for weight checks and send me the measurements. ?8. Exercise counseling: Begin by watching a stretching for beginners video. Start slowly and begin to stretch your muscles. You should do this before and after each exercise session to prevent injury. Please return to [employer] gym near your home. Ask the parts department manager or one of the trainers how to use the machines if you are unfamiliar with them. Start treadmill with a speed of 2.0 and incline of 0, increasing incline by 1 every 3 minutes to the highest comfortable level (max 4 for now) then decrease in the same fashion. Repeat process to a goal of 300 calories. Goal of 2000 calories burned or more weekly. This is the goal. When you start, if you can do 10 minutes, that would be great. The next day, see if you can increase the time to 11 minutes. Once you are up to 20 minutes consistently, start to monitor how many calories you are burning. You may also consider use of the stationary bike. The easiest would be to chose the fat-burn or interval training program on the machine and do this until you reach the 300 calorie goal. Alternatively, you can manually adjust the resistance in a similar fashion as mentioned above, (resistance of 2-8 with a goal speed of 12 mph). Tracking calories is essential. 9. Alternatively start walking outside daily, tracking calories with a goal of 300 calories per day, daily. You can download the miller BridgeXs which can track your time, distance and calories while walking outside. You press start in the miller when you start and then stop when you are finished. 10.? It is important to communicate with me by text weekly, your weight and if you are having any problems with the plans. 11. Please get labs, EKG and chest X-Ray within 1 week. 12. Please follow the diet plan exactly, without any change. If you do not like something about the plan or you feel hungry, you need to communicate with me so I can help you revise the plan. You should not change the plan yourself. Text me at [phone] 13. Goal is to lose at least 12 pounds in the first month 14. Goal is to lose 50-60 pounds before surgery 15. You appointment with [facility] in [place] is 10/01/23 at 10 am but be sure to arrive at 945 am. 16. Once your wounds have healed, consider joining the [employer] or [employer] gym to be able to access the pool for swimming and water aerobics. Patient is morbidly obese and is not considered stable at this time.?I spent a total of 70 minutes reviewing/updating records, examining the patient and counseling the patient on weight management as detailed above. (2) Cellulitis of left lower extremity: Code(s): L03.116 - Cellulitis of left lower limb Plan: continue outpt oral abx, I was able to call [facility] in [place] and help secure an appointment for the pt on 10/01/23 at 10 am while she was in front of me in my office. Orders: Orders Insulin Today E66.01 - Morbid (severe) obesity due to excess calories, I10 - Essential (primary) hypertension H Pylori Breath Test Today E66.01 - Morbid (severe) obesity due to excess calories, I10 - Essential (primary) hypertension IRON PROFILE Today E66.01 - Morbid (severe) obesity due to excess calories, I10 - Essential (primary) hypertension Comprehensive Met. Panel Today E66.01 - Morbid (severe) obesity due to excess calories, I10 - Essential (primary) hypertension Vitamin B12 and Folate Today E66.01 - Morbid (severe) obesity due to excess anoop kyle, I10 - Essential (primary) hypertension C Reactive Protein Today E66.01 - Morbid (severe) obesity due to excess calories, I10 - Essential (primary) hypertension Vitamin B1 Today E66.01 - Morbid (severe) obesity due to excess calories, I10 - Essential (primary) hypertension XR chest 2V Today E66.01 - Morbid (severe) obesity due to excess calories, I10 - Essential (primary) hypertension ECG 12 lead EKG Today E66.01 - Morbid (severe) obesity due to excess calories, I10 - Essential (primary) hypertension Hemoglobin A1c Today E66.01 - Morbid (severe) obesity due to excess calories, I10 - Essential (primary) hypertension Complete Blood Count Auto Diff Today E66.01 - Morbid (severe) obesity due to excess calories, I10 - Essential (primary) hypertension Lipid Panel Today E66.01 - Morbid (severe) obesity due to excess calories, I10 - Essential (primary) hypertension Zinc Today E66.01 - Morbid (severe) obesity due to excess calories, I10 - Essential (primary) hypertension Vitamin A Today E66.01 - Morbid (severe) obesity due to excess calories, I10 - Essential (primary) hypertension TSH reflex Free T4 Today E66.01 - Morbid (severe) obesity due to excess calories, I10 - Essential (primary) hypertension Ferritin Today E66.01 - Morbid (severe) obesity due to excess calories, I10 - Essential (primary) hypertension Vitamin D 25-OH Total Today E66.01 - Morbid (severe) obesity due to excess calories, I10 - Essential (primary) hypertension US abdomen comp w elastography Today E66.01 - Morbid (severe) obesity due to excess calories, I10 - Essential (primary) hypertension FL upper GI w air Today E66.01 - Morbid (severe) obesity due to excess calories, I10 - Essential (primary) hypertension Referrals Nutrition/Dietitian Referral E66.01 - Morbid (severe) obesity due to excess calories, I10 - Essential (primary) hypertension Behavioral Health Referral E66.01 - Morbid (severe) obesity due to excess calories, I10 - Essential (primary) hypertension Coding Level of Care Code Est Pt Level 5 (02294) Diagnoses Morbid obesity E66.01 Cellulitis of left lower extremity L03.116 Time Spent (min) 90
[2023-09-24 14:45] VITALS: BP 138/74; PULSE 115; TEMP 35.9; O2SAT 94; BMI 77.1
== END 2023-09-24 17:21 | disposition home or self-care (01) ==
PROVIDERS: Visit Provider Physician Assistant Surgical
DX: E66.01 Morbid (severe) obesity due to excess calories (principal); Z68.45 Body mass index [BMI] 70 or greater, adult; L03.116 Cellulitis of left lower limb
CPT/HCPCS: 99215

== ENCOUNTER → 2023-09-24 14:14 | Outpatient (BNVA) | payer MEDICARE, MEDICAID, SELFPAY | PROVIDERS: Visit Provider Physician Assistant Surgical | DX: E66.01 Morbid (severe) obesity due to excess calories (principal); L03.116 Cellulitis of left lower limb; Z68.45 Body mass index [BMI] 70 or greater, adult | CPT/HCPCS: 99212 ==

== ENCOUNTER 2023-10-08 11:11 | Outpatient (AMB) | payer MEDICARE, MEDICAID, SELFPAY ==
--- NOTE | 2023-10-08 11:05 | MHC.AMNUTRGE ---
Intake Intake Visit Reasons: (TV) Initial Nutrition SWL Allergies Seasonal Allergies Allergy (Severe, Verified 10/09/21 13:46) Itchy Eyes HPI Nutrition Presentation Details Pt was in SWL program 2019 on/off. lowest BMI in the program was 11/15/20 at 58.7 current BMI 77.1 Diet Assmnt Details Lives alone, reports biggest struggle is not wanting to cook so orders [employer] a lot. gave recommendations for easy meals and cooking methods. she is receptive. Reports emotional eating. She enjoys fruits and vegetables, all lean sources of protein. Was doing [employer] a few months ago , was too much fast got discouraged and gave up. Had a procedure last , not cleared to exercise yet so hasnt implemented anything since starting program. she is excited about swimming and [employer]/ encouraged exploring these She states, cheri gotten so big I can barely walk anymore . Noted May 2023 ED visit Dietary counseling reduction Lifestyle Emotional Eating Reports stress, depression, anxiety, comfort/relaxation and boredom Eating out 4 or more times/week Food frequency Fruit: daily, Vegetables: daily, Grains/pasta/breads/cereal (carbs): daily, Meats/poultry/fish (protein): daily, Meat substitutes/nuts/seeds/legumes: daily, Processed foods/meats: daily, Restaurants/fast foods: daily and Desserts/sweets: daily Diagnosis Nutrition problem #1 overweight/obesity As related to (etiology) #1 excess energy intake and physical inactivity As evidenced by (sign/symptom) #1 high BMI Monitoring/Goals Nutrition problem monitoring total energy intake, level of knowledge/skill, total PRO intake, total CHO intake and weight Learning/Education Educational materials provided Yes Most Recent Diabetes Results: Creatinine 0.84 mg/dL (0.5-1.4) 06/06/23 Blood Urea Nitrogen 13 mg/dL (9-16) 06/06/23 Sodium 138 mmol/L (135-145) 06/06/23 Potassium 3.6 mmol/L (3.3-5.1) 06/06/23 Chloride 104 mmol/L (96-108) 06/06/23 Carbon Dioxide 24 mmol/L (22-29) 06/06/23 Calcium 9.5 mg/dL (8.4-10.2) 06/06/23 AST 8 U/L (5-31) 06/06/23 ALT 19 U/L (0-31) 06/06/23 Total Protein 7.6 g/dL (6.5-8.0) 06/06/23 Albumin 4.1 g/dL (3.5-5.0) 06/06/23 PFSH Medical History Overactive bladder Morbid obesity Migraines Insomnia Hypertension Obesity Depression Anxiety Sleep apnea GERD with apnea Surgical History History of colonoscopy History of endoscopy History of incision and drainage History of ankle surgery Hx of cholecystectomy History of tonsillectomy and adenoidectomy Family History Father Hypertension Heart disease Diabetes Sleep apnea Mother Hypertension Social History Alcohol intake: never Patient Tobacco Use Status: Never used Tobacco Assessment & Plan Assessment & Plan (1) Morbid obesity: Code(s): E66.01 - Morbid (severe) obesity due to excess calories Plan unclear if pt is good candidate yet. Will be seen again Telehealth Telehealth Location of provider rendering services: practice address Location of patient: address on file Patient Identification confirmed using: Name, : Yes Telehealth method: video Patient verbally consented to treatment: Yes Patient verbally consented to billing insurance company: Yes Patient informed of any privacy concerns related to visit: Yes Minutes spent on Phone/Video with Pt.: 30 Coding Level of Care Code Nutr Indiv Intake (80454) Diagnoses Morbid obesity E66.01 Time Spent (min) 30
== END 2023-10-08 11:36 | disposition home or self-care (01) ==
LOC: HO.HBS 11:11
PROVIDERS: Visit Provider Dietitian, Registered
DX: E66.01 Morbid (severe) obesity due to excess calories (principal)

== ENCOUNTER → 2023-10-08 11:11 | Outpatient (BNVA) | payer MEDICARE, MEDICAID, SELFPAY | PROVIDERS: Visit Provider Dietitian, Registered | DX: E66.01 Morbid (severe) obesity due to excess calories (principal) | CPT/HCPCS: 97802 ==

== ENCOUNTER 2023-10-16 13:06 | Outpatient (AMB) | payer MEDICARE, MEDICAID, SELFPAY ==
--- NOTE | 2023-10-16 12:36 | MHC.WMTHER ---
Intake Intake Visit Reasons: VIDEO Intake Allergies Seasonal Allergies Allergy (Severe, Verified 10/09/21 13:46) Itchy Eyes PFSH Medical History Overactive bladder Morbid obesity Migraines Insomnia Hypertension Obesity Depression Anxiety Sleep apnea GERD with apnea Surgical History History of colonoscopy History of endoscopy History of incision and drainage History of ankle surgery Hx of cholecystectomy History of tonsillectomy and adenoidectomy Family History Father Hypertension Heart disease Diabetes Sleep apnea Mother Hypertension Social History Alcohol intake: never Patient Tobacco Use Status: Never used Tobacco Behavioral Health Assessment Weight Management Therapy Therapy Notes Details Pt reported that she is looking to have weight loss surgery to help improve her health and quality of life. Pt stated that she is in therapy with Michelle Hanna at [facility] for bipolar disorder and anxiety. Also Melody Mccoy from [facility] for medication management. She reported high anxiety recently (nervous, agitated, pacing, rapid heartbeat). Pt is on several medications for her emotional health. Also has a hx of suicidal ideation, last was hospitalized in June of 2023 due to manic moments and going through a lot . She reported being admitted to [facility]. Presenting Concerns Referral Source provider Reason for referral weight loss surgery evaluation Precipitating Event obesity Living Situation Current Living Situation Rent At risk of losing current housing? No Satisfied with current living situation? Yes Comments Pt lives alone. Food/Weight/Diet Expectations of change weight loss maintenance History/Relationship with food Pt stated that she would eat everything and anything, would snack all hours of the night, would wake up and eat and then go back to bed. Also eating out often. History/Relationship with weight Pt stated that she has been struggling with her weight since age 11. Since pandemic she has gained 70lbs. History/Relationship with dieting WW, exercise, healthy eating Binge Eating Do you frequently eat large amounts of food in short periods of time, not feeling physically hungry? Yes Do you feel out of control when you eat a large amount of food in a short period of time? Yes Do you eat large amounts of food rapidly and typically alone? Yes Night Eating Do you wake up at least once during the night to eat? Yes If you wake up in the night, do you find that it is necessary to eat something in order to fall back asleep? Yes Do you have little or no appetite in the morning and feel very hungry in the evening, often overeating between dinner and when you go to bed? No Social History Family history and relationship Pt was born and raised in [facility] by her parents and grandparents as an only child. Father had bipolar disorder. Parental/Familial content specialist obligations none known Developmental history and status none Social support mom, grandmother Community support [facility] day program Cultural/Ethnic information Legal Involvement and History Current or historical involvement with the legal system? none Education Highest grade completed high school diploma Preferred learning style Auditory, Verbal, Written, Learn by doing and Visual Currently enrolled in educational program? No Interested in further educational program? No Employment Employment Status Other Wants help to find employment? No Meaningful activities day treatment program Financial Situation Describe current financial situation Often struggles with finance Financial assistance? SSDI Service Service? No Mental Health and Addiction Treatment Current/Past substance abuse? No Comments Pt reported no hx of drug problems. She reported drinking significantly in her 20's. Her father was an alcoholic. Pt reported that she no longer drinks excessively. No hx of alcohol treatment. Current/Past addictive behavior concerns? No Medical and Physical Health Summary Physical exam in the last year? Yes Pain Screening Current pain? No Pain in the last few months? No Medications Is the patient compliant with medications? Yes Does the patient have [facility] Guardian in place? Not applicable Does the patient use complimentary health approaches? No Trauma/Abuse History History of trauma? No Questionnaires PHQ-9 Over the last 2 weeks, how often have you been bothered by any of the following problems? 1. Little interest or pleasure in doing things: several days 2. Feeling down, depressed, or hopeless: several days 3. Trouble falling or staying asleep, or sleeping too much: not at all 4. Feeling tired or having little energy: nearly every day 5. Poor appetite or overeating: several days 6. Feeling bad about yourself - or that you are a failure or have let yourself or your family down: several days 7. Trouble concentrating on things, such as reading the newspaper or watching television: more than half the days 8. Moving or speaking so slowly that other people could have noticed. Or the opposite - being so fidgety or restless that you have been moving around a lot more than usual: more than half the days 9. Thoughts that you would be better off or of hurting yourself in some way: not at all Total score: 11 Source: Developed by Drs. Kenan Jacobson, Maki Gomez, Rogerio Miranda and colleagues, with an educational genaro from [employer]. Binge Eating Scale Group 1 A. I don't feel self-conscious about my wt. or body size when I'm with others. B. I feel concerned about how I look to others, but it normally does not make me fell disappointed with myself C. I do get self-conscious about my appearance and wt. which makes me feel disappointed in myself. D. I feel very self-conscious about my wt. and frequently I feel intense shame and disgust for myself. I try to avoid social contacts because of my self-consciousness. Response Group 1: D Group 2 A. I don't have any difficulty eating slowly in the proper manner. B. Although I seem to gobble down foods, I don't end up feeling stuffed because of eating to much. C. At times, I tend to eat quickly and then, I feel uncomfortably full afterwards. D. I have the habit of bolting down my food, without really chewing it. When this happens I usually feel uncomfortably stuffed because I've eaten to much. Response Group 2: B Group 3 A. I feel capable to control my eating urges when I want to. B. I feel like I have failed to control my eating more than the average person. C. I feel utterly helpless when it comes to feeling in control of my eating urges. D. Because I feel so helpless about controlling my eating I have become very desperate about trying to get control. Response Group 3: C Group 4 A. I don't have the habit of eating when I'm bored. B. I sometimes eat when I'm bored, but often I'm able to get busy and get my mind off food. C. I have a regular habit of eating when I'm bored, but occasionally, I can use some other activity to get my mind off eating. D. I have a strong habit of eating when I'm bored. Nothing seems to help me breath the habit. Response Group 4: D Group 5 A. I'm usually physically hungry when I eat something. B. Occasionally, I eat something on impulse even though I really am not hungry. C. I have the regular habit of eating foods, that I might not really enjoy, to satisfy a hungry feeling even though physically, I don't need the food. D. Although I'm not physically hungry, I get a hungry feeling in my mouth that only seems to be satisfied when I eat a food, like sandwich, that fills my mouth. Sometimes, when I eat the food to satisfy my mouth hunger, I then spit the food out so I won't gain weight. Response Group 5: B Group 6 A. I don't feel any guilt or self-hate after I overeat. B. After I overeat, occasionally I feel guilt or self-hate. C. Almost all the time I experience strong guilt or self-hate after I overeat. Response Group 6: B Group 7 A. I don't lose total control of my eating when dieting even after periods when I overeat. B. Sometimes when I eat a forbidden food on a diet, I feel like I blew it and eat even more. C. Frequently, I have the habit of saying to myself, I've blown it now, why not go all the way, when I overeat on a diet. When that happens I eat more. D. I have a regular habit of starting a strict diets for myself but I break the diets by going on an eating binge. My life seems to be either a feast or famine. Response Group 7: B Group 8 A. I rarely eat so much food that I feel uncomfortably stuffed afterwards. B. Usually about once a month, I each such a quantity of food, I end up feeling very stuffed. C. I have regular periods during the month when I eat large amounts of food, either at mealtime or at snacks. D. I eat so much food that I regularly feel quite uncomfortable after eating and sometimes a bit nauseous. Response Group 8: C Group 9 A. My level of calorie intake does not go up very high or go down very low on a regular basis. B. Sometimes after I overeat, I will try to reduce my caloric intake to almost nothing to compensate for the excess calories I've eaten. C. I have a regular habit of overeating during the night. It seems that my routine is not to be hungry in the morning but overeat in the evening. D. In my adult years, I have had week-long periods where I practically starve myself. This follows periods when I overeat. It seems I live a life of either feast or famine. Response Group 9: C Group 10 A. I usually am able to stop eating when I want to. I know when enough is enough. B. Every so often, I experience a compulsion to eat which I can't seem to control. C. Frequently, I experience strong urges to eat which I seem unable to control, but at other times I can control my eating urges. D. I feel incapable of controlling urges to eat. I have a fear of not being able to stop eating voluntarily. Response Group 10: C Group 11 A. I don't have any problem stopping eating when I feel full. B. I usually can stop eating when I feel full but occasionally overeat leaving me feeling uncomfortably stuffed. C. I have a problem stopping eating once I start and usually I feel uncomfortably stuffed after I eat a meal. D. Because I have a problem not being able to stop eating when I want, I sometimes have to induce vomiting to relieve my stuffed feeling. Response Group 11: B Group 12 A. I seem to eat just as much when I'm with others, Family social gatherings as when I'm by myself. B. Sometimes, when I'm with other persons, I don't eat as much as I want to eat because I'm self-conscious about my eating. C. Frequently, I eat only a small amount of food when others are present, because I'm very embarrassed about my eating. D. I feel so ashamed about overeating that I pick times to overeat when I know no one will see me. I feel like a closet eater. Response Group 12: C Group 13 A. I eat three meals a day with only an occasional between meal snack. B. I eat 3 meals a day, but I also normally snack between meals. C. When I am snacking heavily, I get in the habit of skipping regular meals. D. There are regular periods when I seem to be continually eating, with no planned meals. Response Group 13: C Group 14 A. I don't think much about trying to control unwanted eating urges. B. At least some of the time, I feel my thoughts are pre-occupied with trying to control my eating urges. C. I feel that frequently I spend much time thinking about how much I ate or about trying not to eat anymore. D. It seems to me that most of my waking hours are pre-occupied by thoughts about eating or not eating. I feel like I'm constantly struggling not to eat. Response Group 14: A Group 15 A. I don't think about food a great deal. B. I have strong craving for food but they last only for brief periods of time. C. I have days when I can't seem to think about anything else but food. D. Most of my days seem to be pre-occupied with thoughts about food. I feel like I live to eat. Response Group 15: C Group 16 A. I usually know whether or not I'm physically hungry. I take the right portion of food to satisfy me. B. Occasionally, I feel uncertain about knowing whether or not I'm physically hungry. A these times it's hard to know how much food I should take to satisfy me. C. Even though I might know how many calories I should eat, I don't have any idea what is a normal amount of food for me. Response Group 16: C Binge Eating Score: 27 Score less than 17 Minimal Risk Score between 18-26 Moderate Risk Score between 27-46 High Risk Assessment & Plan Assessment & Plan (1) Bipolar disorder, unspecified: Code(s): F31.9 - Bipolar disorder, unspecified (2) Morbid obesity: Code(s): E66.01 - Morbid (severe) obesity due to excess calories Plan Pt reported being treated for bipolar disorder and anxiety. She reported previous attempts in the program and records indicate that she had gained weight. Pt reported binge eating behaviors prior to starting the program. She will see her therapist tomorrow and sign a release of information to speak with this greeting card writer. Telehealth Telehealth Location of provider rendering services: practice address Location of patient: address on file Patient Identification confirmed using: Name, : Yes Telehealth method: voice only Patient verbally consented to treatment: Yes Patient verbally consented to billing insurance company: Yes Patient informed of any privacy concerns related to visit: Yes Minutes spent on Phone/Video with Pt.: 45 Coding Level of Care Code Tele Psy Diag Eval (11471) Diagnoses Bipolar disorder, unspecified F31.9 Morbid obesity E66.01 Time Spent (min) 45
== END 2023-10-16 14:27 | disposition home or self-care (01) ==
LOC: HO.HBST 13:06
PROVIDERS: Visit Provider Counselor Mental Health
DX: F31.9 Bipolar disorder, unspecified (principal); E66.01 Morbid (severe) obesity due to excess calories
CPT/HCPCS: 90791

== ENCOUNTER → 2023-10-16 13:06 | Outpatient (BNVA) | payer MEDICARE, MEDICAID, SELFPAY | PROVIDERS: Visit Provider Counselor Mental Health ==

== ENCOUNTER 2023-10-23 13:41 | Emergency (ER) | payer MEDICARE, MEDICAID, SELFPAY ==
--- NOTE | ~2023-10-23 | XR_ITS ---
EXAMINATION: XR LUMBOSACRAL SPINE CLINICAL INFORMATION: Fall, tenderness COMPARISON: None available. TECHNIQUE: Three views of the lumbosacral spine. FINDINGS: The vertebral bodies and posterior elements are normal. The disc spaces are preserved and the vertebral alignment is normal. The paraspinal soft tissues are normal. XR/XR lumbar spine 2-3V IMPRESSION: Unremarkable lumbar spine examination.
[2023-10-23 14:31] VITALS: BP 142/95; PULSE 82; RESP 18; TEMP 36.7; O2SAT 96; BMI 78.9
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
[2023-10-23 16:02] LABS: MANUAL DIFF FLAG NO
[2023-10-23 16:03] LABS: Basophils Absolute Auto 0.1 X10*3/uL (0.0-0.2); Basophils Percent Auto 0.4 % (0-2); Eosinophils Absolute Auto 0.2 X10*3/uL (0.0-0.4); Eosinophils Percent Auto 1.5 % (0-4); Hematocrit 36.3 % (37.0-47.0); Hemoglobin 11.4 g/dl (12.0-16.0); Imm Gran Abs Auto 0.03 X10*3/uL (0.00-0.03); Imm Gran Pct Auto 0.3 % (0.0-0.4); Lymphocytes Absolute Auto 2.7 X10*3/uL (1.2-4.9); Lymphocytes Percent Auto 22.7 % (20-40); Mean Corpuscular HGB Conc 31.4 g/dl (31.0-35.0); Mean Corpuscular Hemoglobin 26.4 pg (27.0-33.0); Mean Platelet Volume 9.8 fL (9.4-12.3); Monocytes Absolute Auto 0.6 X10*3/uL (0.1-1.2); Monocytes Percent Auto 5.4 % (2-11); Neutrophils Absolute Auto 8.2 x10*3/uL (2.0-8.3); Neutrophils Percent Auto 69.7 % (45-73); Platelet Count 449 X10*3/uL (160-400); Red Blood Count 4.32 X10*6/uL (4.20-5.50); Red Cell Distribution Width 14.6 % (11.0-16.0); White Blood Count 11.7 X10*3/uL (4.8-10.8)
[2023-10-23] MEDS: Acetaminophen 325 MG TABLET 975 MG PO (16:08)
[2023-10-23] MEDS: Ibuprofen 600 MG TABLET PO (16:08)
[2023-10-23 16:17] LABS: Ethanol < 10 mg/dL
[2023-10-23 16:18] LABS: Alanine Aminotransferase 20 U/L (0-31); Albumin Level 4.1 g/dL (3.5-5.0); Alkaline Phosphatase 71 U/L (39-117); Anion Gap 15 (12-20); Aspartate Amino Transferase 9 U/L (5-31); Bilirubin Direct < 0.2 mg/dL (0.0-0.5); Bilirubin Total 0.2 mg/dL (0.0-1.0); Blood Urea Nitrogen 14 mg/dL (9-16); Calcium 9.5 mg/dL (8.4-10.2); Carbon Dioxide 28 mmol/L (22-29); Chloride 101 mmol/L (96-108); Creatinine Clr Calc Pharmacy 137.6; Estimated Glomerular Filt Rate > 60; Glucose Random 113 mg/dL (60-115); Potassium 3.8 mmol/L (3.3-5.1); Sodium 140 mmol/L (135-145); Total Protein 7.4 g/dL (6.5-8.0)
[2023-10-23 16:19] LABS: Amphetamine Screen Urine Not Detected (Not Detect); Barbiturates, Urine Not Detected (Not Detect); Benzodiazepines Screen Urine Not Detected (Not Detect); Cannabinoid Screen Urine Not Detected (Not Detect); Cocaine Screen Urine Not Detected (Not Detect); Fentanyl, urine Not Detected (Not Detect); Opiate Screen Urine Not Detected (Not Detect); Phencyclidine Screen Urine Not Detected (Not Detect)
[2023-10-23 16:23] LABS: Acetaminophen LAB < 3 mcg/mL (<30); Salicylate < 5.0 mg/dL (15-30)
[2023-10-23 16:24] LABS: COVID-19 Test Negative (Negative); IDNOW Serial# 08D9AD1C
[2023-10-23 16:30] LABS: Appearance Urine Cloudy; Color Urine Yellow; Glucose Urine UA Negative (Negative); Leukocyte Esterase Urine Negative (Negative); Nitrite Urine Negative (Negative); Urine Blood Negative (Negative); Urine Ketones Negative (Negative); Urine Protein Negative (Neg-Trace)
[2023-10-23 16:33] LABS: IDNOW Serial# 16C4AD1C; Influenza A Negative (Negative); Influenza B2 Negative (Negative)
--- NOTE | 2023-10-23 16:52 | PC.NURSE ---
CARE team evaluation in process
--- NOTE | 2023-10-23 19:19 | PC.NURSE ---
patient seated in milieu seems to be watching coming and going of peers, minimal spontaneous interaction with peers and staff. patient appears in no distress.
--- NOTE | 2023-10-23 20:32 | MHC.CARE ---
CARE Team assessment complete. Patient will be referred to [facility]. No beds tonight but there will be beds in the AM. Patient, POD RN, and ED provider are aware.
--- NOTE | 2023-10-23 21:07 | MHC.CARE ---
Tw faxed a referral for this pt to [facility] for [facility] admission, fax was received by [facility]. Please follow up tomorrow
[2023-10-23] MEDS: LORazepam 0.5 MG TABLET PO (21:58)
[2023-10-23] MEDS: traZODone HCL 100 MG TABLET PO (21:58)
[2023-10-23] MEDS: risperiDONE 2 MG TABLET PO (21:58)
[2023-10-23] MEDS: metFORMIN HCl 500 MG TABLET PO (21:58)
[2023-10-24 03:14] VITALS: BP 133/80; PULSE 81; RESP 17; TEMP 36.6; O2SAT 96
[2023-10-24] MEDS: hydroCHLOROthiazide 12.5 MG TABLET PO (08:32)
[2023-10-24] MEDS: Losartan Potassium 50 MG TABLET 100 MG PO (08:32)
[2023-10-24] MEDS: Propranolol HCL LA 60 MG CAP.SA.24H PO (08:33)
[2023-10-24] MEDS: risperiDONE 2 MG TABLET PO (08:33)
[2023-10-24] MEDS: Sertraline HCL 100 MG TABLET 200 MG PO (08:33)
[2023-10-24] MEDS: amLODIPine Besylate 10 MG TABLET PO (08:33)
[2023-10-24] MEDS: LORazepam 0.5 MG TABLET PO (08:33)
[2023-10-24] MEDS: traZODone HCL 100 MG TABLET PO (08:33)
[2023-10-24] MEDS: metFORMIN HCl 500 MG TABLET PO (08:33)
[2023-10-24 08:34] VITALS: BP 146/92; PULSE 83; TEMP 36.5; O2SAT 97
--- NOTE | 2023-10-24 12:53 | MHC.CARE ---
Addendum entered by Coni Arenas [facility] 10/24/23 13:00: Von Carrera [phone] Original Note: Pt was accepted to [facility], patients [facility] pact worker Von Carrera reports he will pick her up and transport her home to get her meds and clothing. He will then transport her to [facility]. He will arrive at the [facility] ED at 1:30 PM.
--- NOTE | 2023-10-24 12:54 | PC.NURSE ---
PT was adherent with morning meds, had an episode of incontinence, took a shower, new hospital attire provided. Pt advocating to be d/c. Care team set up to transfer to [facility] Respite with staff to come pick her up.
== END 2023-10-24 13:22 | disposition home or self-care (01) ==
PROVIDERS: Emergency Medicine; Physician Assistant; Emergency Provider Emergency Medicine
DX: R45.851 Suicidal ideations (principal); Z11.52 Encounter for screening for COVID-19; F32.A Depression, unspecified; F41.9 Anxiety disorder, unspecified; M54.50 Low back pain, unspecified; E66.9 Obesity, unspecified; Z68.45 Body mass index [BMI] 70 or greater, adult; I10 Essential (primary) hypertension; Z79.899 Other long term (current) drug therapy
CPT/HCPCS: 36415; 72100; 80048; 80076; 80143; 80179; 80307; 81003; 85025; 87502; 87635; 99284; 99285; S9485

== ENCOUNTER 2023-11-05 10:16 | Outpatient (AMB) | payer MEDICARE, MEDICAID, SELFPAY ==
--- OUTSIDE RECORDS SUMMARY | 2023-11-05 10:18 | XMS_ITS | Continuity of Care Document ---
Author Name Unknown Organization [facility] Address [address] [place] [id number]- Care Team Providers Care Liability Claims Representative Name Role Phone Linette JOSE, January Alana Primary Care Ph ysician [facility]counter [facility] [id number] Date(s): 07/26/23 - 10/26/23 [facility] [address] [place] [address]- Attending Physician: Edmund Abarca Referring Physician: Linette JOSE, January Alana Allergies, [...] 07/27/19 13:50:52 EDT, Route to Pharmacy Electronically, [id number], [facility]/pharmacy #[id number] Start Date: [...] 07/27/19 13:53:05 EDT, Route to Pharmacy Electronically, [id number], [facility]/pharmacy #[id number] Start Date: [...] Daily, 0 Refills, Maintenance, 12/27/21 11:49:00 EDT, [place], Partial fill upon patient request if the [...] Personnel Name: Sridhar JOSE, Marilyn Gao Position: [facility] Nurse Member Role: Primary Care Nurse Name: Nathaly Langston MD Position: [facility] FINISHING OPERATOR MD Member Role: Lifetime FINISHING OPERATOR Physician Address: Address: [address] [place] [address] [facility] [place] [address]- Name: Hortensia Hernandez RN Position: [facility] ED RN W/OE and Tasks Member Role: Primary Care Nurse Name: Cristhian Paz RN Position: [facility] RN Member Role: Primary Care Nurse Name: Linette JOSE, Anu Warner Position: Reference Physician Member Role: PCP Address: Address: [address] [place] [id number]- Care Team Related Persons Name: HARMAN STEVENSON Address: [address] [place] [address] Name: MARLIN CARMONA
--- OUTSIDE RECORDS SUMMARY | 2023-11-05 10:19 | XMS_ITS | Continuity of Care Document ---
Author Name Unknown Organization [facility] ter Address [address] [place] [id number]- Care Team Providers Care Design Teacher Name Role Phone Linette RN, January Alana Primary Care Ph ysician Encounter [facility] Date(s): 08/30/23 - 10/25/[address] [id number] Attending Physician: Katelyn Childress MD Admitting Physician: Katelyn Childress MD Referring Physician: Katie Steel Allergies, Adverse Reactions, Alerts Substance Reaction Severity [...] 07/27/19 13:50:52 EDT, Route to Pharmacy Electronically, [id number], [facility]/pharmacy #[id number] Start Date: 07/27/19 Stop Date: 09/25/19 [...] 07/27/19 13:53:05 EDT, Route to Pharmacy Electronically, [id number], [facility]/pharmacy #[id number] Start Date: 07/27/19 Stop Date: 09/25/19 [...] Daily, 0 Refills, Maintenance, 12/27/21 11:49:00 EDT, [place], Partial fill upon patient request if the [...] Personnel Name: Sridhar RN, Marilyn Gao Position: [facility] Nurse Member Role: Primary Care Nurse Name: Ivsi GUIDRY, Nathaly Bernard Position: [facility] INGOT BUGGY OPERATOR MD Member Role: Lifetime INGOT BUGGY OPERATOR Physician Address: Address: [address] [place] [address] [facility] [place] [place] [address]- Name: Hortensia Hernandez RN Position: [facility] ED RN W/OE and Tasks Member Role: Primary Care Nurse Name: Cristhian Paz RN Position: [facility] RN Member Role: Primary Care Nurse Name: Linette JOSE, Anu Warner Position: Reference Physician Member Role: PCP Address: Address: [address] [place] [address]- Care Team Related Persons Name: HARMAN STEVENSON Address: [address] [place] [address] Name: MARLIN CARMONA
--- OUTSIDE RECORDS SUMMARY | 2023-11-05 10:19 | XMS_ITS | Continuity of Care Document ---
Author Name Unknown Organization [facility] Address [address] [place] [id number]- Care Team Providers Care Medical Administrator Name Role Phone Linette JOSE, January [facility] Primary Care Ph ysician Encounter [facility] Date(s): 09/26/23 - 10/26/23 [facility] [address] [place] [address]- Attending Physician: Estrella Hammond Admitting Physician: Estrella Hammond Referring Physician: AdmtrEstrella Allergies, Adverse Reactions, Alerts [...] 07/27/19 13:50:52 EDT, Route to Pharmacy Electronically, [id number], [facility]/pharmacy #[id number] Start Date: 07/27/19 [...] 07/27/19 13:53:05 EDT, Route to Pharmacy Electronically, [id number], [facility]/pharmacy #[id number] Start Date: 07/27/19 [...] Daily, 0 Refills, Maintenance, 12/27/21 11:49:00 EDT, [place], Partial fill upon patient request if the [...] Personnel Name: Sridhar JOSE, Marilyn Gao Position: [facility] Nurse Member Role: Primary Care Nurse Name: Nathaly Langston MD Position: [facility] DRYWALL CARRIER MD Member Role: Lifetime DRYWALL CARRIER Physician Address: Address: [address] [place] [address] [facility] Power [employer] [place] [address]- Name: Hortensia Hernandez RN Position: [facility] ED RN W/OE and Tasks Member Role: Primary Care Nurse Name: Cristhian Paz RN Position: [facility] RN Member Role: Primary Care Nurse Name: Linette JOSE, Anu Warner Position: Reference Physician Member Role: PCP Address: Address: [address] [place] [id number]- Care Team Related Persons Name: HARMAN STEVENSON Address: home [address] [place] [address] Name: MARLIN CARMONA
--- NOTE | 2023-11-05 10:31 | A.OFFVIS_ITS ---
Intake Intake Visit Reasons: VIDEO F/U SWL Allergies Seasonal Allergies Allergy (Severe, Verified 10/09/21 13:46) Itchy Eyes HPI Nutrition Presentation Details Pt was in SWL program 2019 on/off. lowest BMI in the program was 11/15/20 at 58.7 current BMI 77.1 Diet Assmnt Details Had a recent ED admission with suicidal ideation. She reports adhering to a nutrition plan has been extremely challenging. We had a long discussion about the importance for having stable mental health while trying to form new habits and eventually have bariatric surgery Last appt, She stated, cheir gotten so big I can barely walk anymore . Noted May 2023 ED visit Dietary counseling reduction Diagnosis Nutrition problem #1 overweight/obesity As related to (etiology) #1 excess energy intake and physical inactivity As evidenced by (sign/symptom) #1 high BMI Monitoring/Goals Nutrition problem monitoring total energy intake, level of knowledge/skill, total PRO intake, total CHO intake and weight Most Recent Diabetes Results: Creatinine 0.83 mg/dL (0.5-1.4) 10/23/23 Blood Urea Nitrogen 14 mg/dL (9-16) 10/23/23 Sodium 140 mmol/L (135-145) 10/23/23 Potassium 3.8 mmol/L (3.3-5.1) 10/23/23 Chloride 101 mmol/L (96-108) 10/23/23 Carbon Dioxide 28 mmol/L (22-29) 10/23/23 Calcium 9.5 mg/dL (8.4-10.2) 10/23/23 AST 9 U/L (5-31) 10/23/23 ALT 20 U/L (0-31) 10/23/23 Total Protein 7.4 g/dL (6.5-8.0) 10/23/23 Albumin 4.1 g/dL (3.5-5.0) 10/23/23 [facility] Medical History Overactive bladder Morbid obesity Migraines Insomnia Hypertension Obesity Depression Anxiety Sleep apnea GERD with apnea Surgical History History of colonoscopy History of endoscopy History of incision and drainage History of ankle surgery Hx of cholecystectomy History of tonsillectomy and adenoidectomy Family History Father Hypertension Heart disease Diabetes Sleep apnea Mother Hypertension Social History Unable to assess alcohol history related to: Unknown Alcohol intake: never Patient Tobacco Use Status: Never used Tobacco Assessment & Plan Assessment & Plan (1) Morbid (severe) obesity due to excess calories: Code(s): E66.01 - Morbid (severe) obesity due to excess calories Plan see below Patient Instructions: She and I both agreed she will no longer continue in the program. Had a recent ED admission with suicidal ideation. She would benefit from seeing an RD and wo rking closely w a therapist in the community to help improve her relationship with food prior to pursing bariatric surgery. She was fully in agreement. appts and tests will be cancelled. Do not recommend for MWL at this time Telehealth Telehealth Location of provider rendering services: practice address Location of patient: address on file Patient Identification confirmed using: Name, : Yes Telehealth method: video Patient verbally consented to treatment: Yes Patient verbally consented to billing insurance company: Yes Patient informed of any privacy concerns related to visit: Yes Minutes spent on Phone/Video with Pt.: 30 Coding Level of Care Code Nutr Indiv Subseq (68266) Diagnoses Morbid (severe) obesity due to excess calories E66.01 Time Spent (min) 30
== END 2023-11-05 10:21 | disposition home or self-care (01) ==
LOC: HO.HBS 10:16
PROVIDERS: Visit Provider Dietitian, Registered
DX: E66.01 Morbid (severe) obesity due to excess calories (principal)

== ENCOUNTER → 2023-11-05 10:16 | Outpatient (BNVA) | payer MEDICARE, MEDICAID, SELFPAY | PROVIDERS: Visit Provider Dietitian, Registered | DX: E66.01 Morbid (severe) obesity due to excess calories (principal); Z71.3 Dietary counseling and surveillance | CPT/HCPCS: 97803 ==

== ENCOUNTER 2024-10-19 08:03 | Outpatient (AMB) | payer MEDICARE, MEDICAID, SELFPAY ==
--- OUTSIDE RECORDS SUMMARY | 2024-10-19 08:05 | XMS_ITS | Clinical Summary ---
Author Organization Unknown Care Team Providers Care Before School Babysitter Name Role Phone JOSÉ MIGUEL FURNACE ERECTOR, JANUARY Unavailable Unavail able WILLY JOSE, MINDI Unavailable Unavailable Payers Payer Name Policy Type Policy Number Effective Date Expira tion Date [place] [id number] [place] [id number] Problems Condition Name Condition Details Condition Category Status Onset Date Resolution Date Last Treatment Date Treating Clinician Comments BIPOLAR DISORDER, UNSPECIFIED Active 04-23 00:00: 00 MILD INTELLECTUAL DISABILITIES Active 04-27 00:00: 00 MORBID (SEVERE) OBESITY DUE TO EXCESS CALORIES Active 04-27 00:00: 00 UNSPECIFIED ASTHMA, UNCOMPLICATE D Active 04-27 00:00: 00 PREDIABETES Active 04-27 00:00: 00 ESSENTIAL (PRIMARY) HYPERTENSION Active 04-27 00:00: 00 Allergies, Adverse Reactions, Alerts Allergy Name Allergy Type Status Severity Reaction(s) Onset Date Inactive Date Treating Clinician Comments HYDROXYZINE PAMOATE Propensity to adverse reactions Active 04-30 16:44: 28 TOPAMAX Propensity to adverse reactions Active 04-30 16:44: 41 Medications Ordered Medication Name Filled Medication Name Start Date Stop Date Current Medication? Ordering Clinician Indication Dosage Frequency Signature (SIG) Comments Components atomoxetine 40 mg capsule 04-11 00:00: 00 11-26 23:59 :00 No [id number] Per instruc tions ONCE DAILY Per instructio ns ONCE DAILY (route: oral) Med Classific ation: Central Nervous System Agents Daily-Kyalh (with folic acid) 400 mcg tablet 04-11 00:00: 00 11-26 23:59 :00 No [id number] Per instruc tions EVERY DAY Per instructio ns EVERY DAY (route: oral) Med Classific ation: Electroly te Balance-N utritiona l Products divalproex ER 500 mg tablet,exte nded release 24 hr 04-11 00:00: 00 11-26 23:59 :00 No [id number] Per instruc tions EVERYDAY AT BEDTIME Per instructio ns EVERYDAY AT BEDTIME (route: oral) Med Classific ation: Central Nervous System Agents Rexulti 2 mg tablet 04-06 00:00: 00 04-27 23:59 :00 No [id number] Per instruc tions EVERY DAY Per instructio ns EVERY DAY (route: oral) Med Classific ation: Central Nervous System Agents propranolol ER 60 mg capsule,24 hr,extended release 04-05 00:00: 00 11-26 23:59 :00 No [id number] Per instruc tions EVERY DAY Per instructio ns EVERY DAY (route: oral) Med Classific ation: Cardiovas cular Therapy Agents norethindro ne (contracept cheri) 0.35 mg tablet 04-03 00:00: 00 11-26 23:59 :00 No [id number] Per instruc tions DAILY FOR 28 DAYS Per instructio ns DAILY FOR 28 DAYS (route: oral) Med Classific ation: Contracep tives Breo Ellipta 200 mcg-25 mcg/dose powder for inhalation 03-29 00:00: 00 11-26 23:59 :00 No [id number] Per instruc tions EVERY DAY Per instructio ns EVERY DAY (route: inhalation ) Med Classific ation: Respirato ry Therapy Agents sumatriptan 50 mg tablet 03-29 00:00: 00 11-26 23:59 :00 No [id number] Per instruc tions NEEDED PER DAY Per instructio ns NEEDED PER DAY (route: oral) Med Classific ation: Central Nervous System Agents trospium 20 mg tablet 03-29 00:00: 00 05-01 23:59 :00 No [id number] Per instruc tions TWICE A DAY Per instructio ns TWICE A DAY (route: oral) Med Classific ation: Genitouri nary Therapy amlodipine 5 mg tablet 03-26 00:00: 00 11-26 23:59 :00 No [id number] Per instruc tions EVERY DAY Per instructio ns EVERY DAY (route: oral) Med Classific ation: Cardiovas cular Therapy Agents oxybutynin chloride ER 15 mg tablet,exte nded release 24 hr 03-26 00:00: 00 11-26 23:59 :00 No [id number] Per instruc tions EVERY DAY Per instructio ns EVERY DAY (route: oral) Med Classific ation: Genitouri nary Therapy Trelegy Ellipta 200 mcg-62.5 mcg-25 mcg powder for inhalation 03-26 00:00: 00 11-26 23:59 :00 No [id number] Per instruc tions EVERY DAY Per instructio ns EVERY DAY (route: inhalation ) Med Classific ation: Respirato ry Therapy Agents buspirone 30 mg tablet 04-27 00:00: 00 11-26 23:59 :00 No [id number] 30 mg 2 TIMES DAILY 30 mg 2 TIMES DAILY (route: oral) Med Classific ation: Central Nervous System Agents cetirizine 10 mg tablet 04-27 00:00: 00 11-26 23:59 :00 No [id number] 10 mg DAILY 10 mg DAILY (route: oral) Med Classific ation: Respirato ry Therapy Agents divalproex 125 mg tablet,danielle yed release 04-27 00:00: 00 11-26 23:59 :00 No [id number] 250 mg BEDTIME 250 mg BEDTIME (route: oral) Med Classific ation: Central Nervous System Agents ergocalcife rol (vitamin D2) 10 mcg (400 unit) tablet 04-27 00:00: 00 11-26 23:59 :00 No [id number] 400 mcg WEEKLY 400 mcg WEEKLY (route: oral) Med Classific ation: Electroly te Balance-N utritiona l Products irbesartan 300 mg tablet 04-27 00:00: 00 11-26 23:59 :00 No [id number] 300 mg DAILY 300 mg DAILY (route: oral) Med Classific ation: Cardiovas cular Therapy Agents metformin 500 mg tablet 04-27 00:00: 00 11-26 23:59 :00 No [id number] 500 mg 2 TIMES DAILY 500 mg 2 TIMES DAILY (route: oral) Med Classific ation: Endocrine omeprazole 20 mg capsule,del ayed release 04-27 00:00: 00 11-26 23:59 :00 No [id number] 20 mg DAILY 20 mg DAILY (route: oral) Med Classific ation: Gastroint estinal Therapy Agents Rexulti 3 mg tablet 04-27 00:00: 00 11-26 23:59 :00 No [id number] 3 mg DAILY 3 mg DAILY (route: oral) Med Classific ation: Central Nervous System Agents sertraline 100 mg tablet 04-27 00:00: 00 11-26 23:59 :00 No [id number] 100 mg DAILY 100 mg DAILY (route: oral) Med Classific ation: Central Nervous System Agents trazodone 50 mg tablet 04-27 00:00: 00 11-26 23:59 :00 No [id number] 50 mg BEDTIME 50 mg BEDTIME (route: oral) Med Classific ation: Central Nervous System Agents Vital Signs Vital Name Observation Time Observation Value Commen ts BMI (%) 2022-04-30 16:39:00.000 71 kg/m2 Height 2022-04-30 16:39:00.000 59 [in_us] Pulse 2022-05-18 15:42:00.000 76 /min Pulse 2022-05-11 14:12:00.000 84 /min Pulse 2022-04-30 16:39:00.000 88 /min Respirations 2022-05-18 15:42:00.000 18 /min Respirations 2022-05-11 14:12:00.000 18 /min Respirations 2022-04-30 16:39:00.000 20 /min Weight (lbs) 2022-04-30 16:39:00.000 356 [lb_av] Systolic Blood Pressure 2022-05-18 15:42:00.000 160 mm [Hg] Systolic Blood Pressure 2022-05-11 14:12:00.000 146 mm [Hg] Systolic Blood Pressure 2022-04-30 16:39:00.000 158 mm [Hg] Diastolic Blood Pressure 2022-05-18 15:42:00.000 90 mm [Hg] Diastolic Blood Pressure 2022-05-11 14:12:00.000 86 mm [Hg] Diastolic Blood Pressure 2022-04-30 16:39:00.000 90 mm [Hg] Plan of Treatment Planned Activity Planned Date Details Comments Future Scheduled Test SKILLED NU RSE TO EVALUATE PATIENT, IDENTIFY PRIMARY AND CO-MORBID CONDITIONS CODED PER CODING GUIDELINES, AND DEVELOP PATIENT SPECIFIC PLAN OF CARE THAT INCLUDES PATIENT GOAL FOR HOME HEALTH. CLINICAL SUMMARY (SOC/ADRI/RECERT, 10 DAY, 60 DAY) THE PATIENT IS RECEIVING HOMECARE DUE TO NEW ONSET/EXACERBATION OF: BIPOLAR AFFECTIVE DISORDER WITH SUICIDAL IDEATION. RECENT HOSPITALIZATION/INPATIENT ADMISSION RELATED TO: SUICIDAL IDEATION NEW OR CHANGED MEDICATIONS PERTINENT TO THE PLAN OF CARE: DEPAKOTE INCREASED PROPRANOLOL ADDED PATIENT LIVING SITUATION/CAREGIVER STATUS: ALONE RECENT FALLS: NONE SKILLED TEACHING AND TRAINING, OBSERVATION AND ASSESSMENT, AND/OR TREATMENTS THAT REQUIRE SKILLED CARE: ASSESS MENTAL HEALTH STATUS AND MEDICATION MANAGEMENT ADDITIONAL DISCIPLINES NEEDED OR DECLINED ORDERED SERVICES: [code = SKILLED NURSE TO EVALUATE PATIENT, IDENTIFY PRIMARY AND CO-MORBID CONDITIONS CODED PER CODING GUIDELINES, AND DEVELOP PATIENT SPECIFIC PLAN OF CARE THAT INCLUDES PATIENT GOAL FOR HOME HEALTH. CLINICAL SUMMARY (SOC/ADRI/RECERT, 10 DAY, 60 DAY) THE PATIENT IS RECEIVING HOMECARE DUE TO NEW ONSET/EXACERBATION OF: BIPOLAR AFFECTIVE DISORDER WITH SUICIDAL IDEATION. RECENT HOSPITALIZATION/INPATIENT ADMISSION RELATED TO: SUICIDAL IDEATION NEW OR CHANGED MEDICATIONS PERTINENT TO THE PLAN OF CARE: DEPAKOTE INCREASED PROPRANOLOL ADDED PATIENT LIVING SITUATION/CAREGIVER STATUS: ALONE RECENT FALLS: NONE SKILLED TEACHING AND TRAINING, OBSERVATION AND ASSESSMENT, AND/OR TREATMENTS THAT REQUIRE SKILLED CARE: ASSESS MENTAL HEALTH STATUS AND MEDICATION MANAGEMENT ADDITIONAL DISCIPLINES NEEDED OR DECLINED ORDERED SERVICES: ] Future Scheduled Test SKILLED NU RSE TO PRE-POUR MEDICATION PER MEDICATION LIST WEEKLY [code = SKILLED NURSE TO PRE-POUR MEDICATION PER MEDICATION LIST WEEKLY ] Future Scheduled Test SKILLED NU RSE TO O/A OF PATIENTS MENTAL/BEHAVIORAL STATUS, ASSESS VITAL SIGNS PER VISIT. ALLOW 2 PRNS FOR MEDICATION MANAGEMENT. [code = SKILLED NURSE TO O/A OF PATIENTS MENTAL/BEHAVIORAL STATUS, ASSESS VITAL SIGNS PER VISIT. ALLOW 2 PRNS FOR MEDICATION MANAGEMENT.] Future Scheduled Test SKILLED NU RSE FOR O/A OF PATIENT'S RISK FOR SELF HARM AND TO PROVIDE INTERVENTION TECHNIQUES TO PROMOTE SAFETY TO PATIENT AND OTHERS [code = SKILLED NURSE FOR O/A OF PATIENT'S RISK FOR SELF HARM AND TO PROVIDE INTERVENTION TECHNIQUES TO PROMOTE SAFETY TO PATIENT AND OTHERS] Future Scheduled Test SKILLED NU RSE FOR O/A OF NEUROCOGNITIVE AND BEHAVIORAL STATUS [code = SKILLED NURSE FOR O/A OF NEUROCOGNITIVE AND BEHAVIORAL STATUS] Future Scheduled Test SKILLED NU RSE MAY PICKUP AND TRANSPORT MEDICATIONS [code = SKILLED NURSE MAY PICKUP AND TRANSPORT MEDICATIONS] Future Scheduled Test MEDICATION S WILL BE HELD AND STORED IN LOCKBOX [code = MEDICATIONS WILL BE HELD AND STORED IN LOCKBOX] Future Scheduled Test SKILLED NU RSE FOR O/A OF GENERAL HEALTH STATUS OF PAIN, CARDIAC, RESPIRATORY, GASTROINTESTINAL, GENITOURINARY, SKIN, NEUROLOGIC, ENDOCRINE SYSTEMS TO IDENTIFY CHANGES ASSOCIATED WITH EXACERBATION FOR EARLY INTERVENTION OF COMPLICATIONS [code = SKILLED NURSE FOR O/A OF GENERAL HEALTH STATUS OF PAIN, CARDIAC, RESPIRATORY, GASTROINTESTINAL, GENITOURINARY, SKIN, NEUROLOGIC, ENDOCRINE SYSTEMS TO IDENTIFY CHANGES ASSOCIATED WITH EXACERBATION FOR EARLY INTERVENTION OF COMPLICATIONS ] Future Scheduled Test SKILLED NU RSE FOR O/A OF RESPIRATORY SYSTEM TO IDENTIFY CHANGES ASSOCIATED WITH EXACERBATION AND TO PROVIDE SKILLED TEACHING ON MANAGEMENT OF ASTHMA RESPIRATORY DISEASE PROCESS. [code = SKILLED NURSE FOR O/A OF RESPIRATORY SYSTEM TO IDENTIFY CHANGES ASSOCIATED WITH EXACERBATION AND TO PROVIDE SKILLED TEACHING ON MANAGEMENT OF ASTHMA RESPIRATORY DISEASE PROCESS.] Future Scheduled Test SKILLED NU RSE TO PROVIDE TEACHING ON SIGNS AND SYMPTOMS AND MANAGEMENT OF HYPERTENSION. [code = SKILLED NURSE TO PROVIDE TEACHING ON SIGNS AND SYMPTOMS AND MANAGEMENT OF HYPERTENSION.] Future Scheduled Test SKILLED NU RSE FOR O/A AND SKILLED TEACHING RELATED TO MANAGEMENT OF DEPRESSIVE SYMPTOMS AND/OR DEPRESSION INCLUDING PARTICIPATION IN [facility] CARE SPECIALTY PROGRAM. SN TO REPORT SIGNIFICANT CHANGE IN DEPRESSIVE SYMPTOMS TO CLINICAL PROVIDER FOR EARLY INTERVENTION. [code = SKILLED NURSE FOR O/A AND SKILLED TEACHING RELATED TO MANAGEMENT OF DEPRESSIVE SYMPTOMS AND/OR DEPRESSION INCLUDING PARTICIPATION IN [facility] CARE SPECIALTY PROGRAM. SN TO REPORT SIGNIFICANT CHANGE IN DEPRESSIVE SYMPTOMS TO CLINICAL PROVIDER FOR EARLY INTERVENTION.] Goal 2022-06-05 Patient Goal - T FRANCINE MY MEDICATIONS CORRECTLY Goal Provider Goal - A PLAN OF CARE WILL BE ESTABLISHED THAT MEETS PATIENT'S CARE HOME NEEDS AND INCLUDES PATIENT GOAL FOR HOME HEALTH. Goal Provider Goal - PATIENT WILL COMPLY WITH MEDICATION WHEN SKILLED NURSE PRE-POURS MEDICATION. Goal Provider Goal - PATIENT WILL REMAIN SAFE IN COMMUNITY WITHOUT EVIDENCE OF INJURY/HARM TO SELF OR OTHERS Goal Provider Goal - PATIENT WILL BE ABLE TO PERFORM DAILY FUNCTIONS AND MAINTAIN OPTIMAL BEHAVIORAL/NEUROCOGNITIVE STATUS. Goal Provider Goal - Goal Provider Goal - PATIENT/CAREGIVER WILL VERBALIZE/DEMONSTRATE MANAGEMENT OF RESPIRATORY DISEASE PROCESS. CHANGES IN RESPIRATORY STATUS WILL BE IDENTIFIED AND REPORTED TO PHYSICIAN FOR PROMPT INTERVENTION THROUGHOUT THE CERTIFICATION PERIOD. Reason for Visit INDEPENDENT IN THE HOME Encounters Start Date/Time End Date/Time Encounter Type Admission Type Attending [facility] Care Department Encounter ID Discharge Date Discharge Status Discharge Condition Discharge Reason Percent Goals Met 2022-04-30 00:00:00 2022-06-05 00:00:00 Outpatient NEW ADMISSION MINDI AGUILERA [facility] [id number] 1158-08-23 00:00:00 DISCHARGED /TRANSFERR ED TO A HOME UNDER CARE OF ORGANIZED HOME HEALTH SERVICE ORGANIZATI ON IN ANTICIPATI ON OF COVERED SKILLED CARE INDEPENDEN T IN THE HOME PER CLIENT REQUEST 34.48
--- OUTSIDE RECORDS SUMMARY | 2024-10-19 08:06 | XMS_ITS | Clinical Summary ---
Author Organization Unknown Care Team Providers Care Financial Planning Assistant Name Role Phone JOSÉ MIGUEL BOILERMAKER HELPER, JANUARY Unavailable Unavail able WILLY JOSE, MINDI Unavailable Unavailable Payers Payer Name Policy Type Policy Number Effective Date Expira tion Date [place] [id number] [place] [id number] Problems Condition Name Condition Details Condition Category [...] 04-11 00:00: 00 11-26 23:59 :00 No [id number] Per instruc tions ONCE DAILY Per instructio ns ONCE DAILY (route: oral) Med Classific ation: Central Nervous System Agents Daily-Kylah (with folic acid) 400 mcg tablet 04-11 00:00: 00 11-26 23:59 :00 No [id number] Per instruc tions EVERY DAY Per instructio ns EVERY DAY (route: oral) Med Classific ation: Electroly te Balance-N utritiona l Products divalproex ER 500 mg tablet,exte nded release 24 hr 04-11 00:00: 00 11-26 23:59 :00 No [id number] Per instruc tions EVERYDAY AT BEDTIME Per instructio ns EVERYDAY AT BEDTIME (route: oral) Med Classific ation: Central Nervous System Agents Rexulti 2 mg tablet 04-06 00:00: 00 04-27 23:59 :00 No [id number] Per instruc tions EVERY DAY Per instructio ns EVERY DAY (route: oral) Med Classific ation: Central Nervous System Agents propranolol ER 60 mg capsule,24 hr,extended release 04-05 00:00: 00 11-26 23:59 :00 No [id number] Per instruc tions EVERY DAY Per instructio ns EVERY DAY (route: oral) Med Classific ation: Cardiovas cular Therapy Agents norethindro ne (contracept cheri) 0.35 mg tablet 04-03 00:00: 00 11-26 23:59 :00 No [id number] Per instruc tions DAILY FOR 28 DAYS Per instructio ns DAILY FOR 28 DAYS (route: oral) Med Classific ation: Contracep tives Breo Ellipta 200 mcg-25 mcg/dose powder for inhalation 03-29 00:00: 00 11-26 23:59 :00 No [id number] Per instruc tions EVERY DAY Per instructio ns EVERY DAY (route: inhalation ) Med Classific ation: Respirato ry Therapy Agents sumatriptan 50 mg tablet 03-29 00:00: 00 11-26 23:59 :00 No [id number] Per instruc tions NEEDED PER DAY Per instructio ns NEEDED PER DAY (route: oral) Med Classific ation: Central Nervous System Agents trospium 20 mg tablet 03-29 00:00: 00 05-01 23:59 :00 No [id number] Per instruc tions TWICE A DAY Per instructio ns TWICE A DAY (route: oral) Med Classific ation: Genitouri nary Therapy amlodipine 5 mg tablet 03-26 00:00: 00 11-26 23:59 :00 No [id number] Per instruc tions EVERY DAY Per instructio ns EVERY DAY (route: oral) Med Classific ation: Cardiovas cular Therapy Agents oxybutynin chloride ER 15 mg tablet,exte nded release 24 hr 03-26 00:00: 00 11-26 23:59 :00 No [id number] Per instruc tions EVERY DAY Per instructio ns EVERY DAY (route: oral) Med Classific ation: Genitouri nary Therapy Trelegy Ellipta 200 mcg-62.5 mcg-25 mcg powder for inhalation 03-26 00:00: 00 11-26 23:59 :00 No [id number] Per instruc tions EVERY DAY Per instructio ns EVERY DAY (route: inhalation ) Med Classific ation: Respirato ry Therapy Agents buspirone 30 mg tablet 04-27 00:00: 00 11-26 23:59 :00 No [id number] 30 mg 2 TIMES DAILY 30 mg 2 TIMES DAILY (route: oral) Med Classific ation: Central Nervous System Agents cetirizine 10 mg tablet 04-27 00:00: 00 11-26 23:59 :00 No [id number] 10 mg DAILY 10 mg DAILY (route: oral) Med Classific ation: Respirato ry Therapy Agents divalproex 125 mg tablet,danielle yed release 04-27 00:00: 00 11-26 23:59 :00 No [id number] 250 mg BEDTIME 250 mg BEDTIME (route: oral) Med Classific ation: Central Nervous System Agents ergocalcife rol (vitamin D2) 10 mcg (400 unit) tablet 04-27 00:00: 00 11-26 23:59 :00 No [id number] 400 mcg WEEKLY 400 mcg WEEKLY (route: oral) Med Classific ation: Electroly te Balance-N utritiona l Products irbesartan 300 mg tablet 04-27 00:00: 00 11-26 23:59 :00 No [id number] 300 mg DAILY 300 mg DAILY (route: oral) Med Classific ation: Cardiovas cular Therapy Agents metformin 500 mg tablet 04-27 00:00: 00 11-26 23:59 :00 No [id number] 500 mg 2 TIMES DAILY 500 mg 2 TIMES DAILY (route: oral) Med Classific ation: Endocrine omeprazole 20 mg capsule,del ayed release 04-27 00:00: 00 11-26 23:59 :00 No [id number] 20 mg DAILY 20 mg DAILY (route: oral) Med Classific ation: Gastroint estinal Therapy Agents Rexulti 3 mg tablet 04-27 00:00: 00 11-26 23:59 :00 No [id number] 3 mg DAILY 3 mg DAILY (route: oral) Med Classific ation: Central Nervous System Agents sertraline 100 mg tablet 04-27 00:00: 00 11-26 23:59 :00 No [id number] 100 mg DAILY 100 mg DAILY (route: oral) Med Classific ation: Central Nervous System Agents trazodone 50 mg tablet 04-27 00:00: 00 11-26 23:59 :00 No [id number] 50 mg BEDTIME 50 mg BEDTIME (route: [...] DEPRESSIVE SYMPTOMS AND/OR DEPRESSION INCLUDING PARTICIPATION IN [facility] CARE SPECIALTY PROGRAM. SN TO REPORT SIGNIFICANT CHANGE IN DEPRESSIVE SYMPTOMS TO CLINICAL PROVIDER FOR EARLY INTERVENTION. [code = SKILLED NURSE FOR O/A AND SKILLED TEACHING RELATED TO MANAGEMENT OF DEPRESSIVE SYMPTOMS AND/OR DEPRESSION INCLUDING PARTICIPATION IN [facility] CARE SPECIALTY PROGRAM. SN TO REPORT SIGNIFICANT CHANGE IN DEPRESSIVE SYMPTOMS TO CLINICAL PROVIDER FOR EARLY INTERVENTION.] Goal 2022-06-05 Patient Goal - T FRANCINE MY MEDICATIONS CORRECTLY Goal Provider Goal - A PLAN OF CARE WILL BE ESTABLISHED THAT MEETS PATIENT'S HALF-WAY NEEDS AND INCLUDES PATIENT GOAL FOR HOME [...] End Date/Time Encounter Type Admission Type Attending [facility] Care Department Encounter ID Discharge Date Discharge Status Discharge Condition Discharge Reason Percent Goals Met 2022-04-30 00:00:00 2022-06-05 00:00:00 Outpatient NEW ADMISSION MINDI AGUILERA [facility] [id number] 6418-08-23 00:00:00 DISCHARGED /TRANSFERR ED TO A HOME UNDER CARE OF ORGANIZED HOME HEALTH SERVICE ORGANIZATI ON IN ANTICIPATI ON OF COVERED SKILLED CARE INDEPENDEN T IN THE HOME PER CLIENT REQUEST 34.48
--- NOTE | 2024-10-19 12:08 | A.OFFVIS_ITS ---
Intake Visit Reasons: TV Re-Est SWL BMI 79.3 Allergies Seasonal Allergies Allergy (Severe, Verified 10/19/24 12:08) Itchy Eyes topiramate [From Topamax] Allergy (Mild, Verified 10/19/24 12:08) Dizziness hydroxyzine Allergy (Mild, Uncoded 10/19/24 12:08) Dizziness Medication List - Last Reconciled 10/19/24 by Adarsh Bradley MD albuterol sulfate 90 mcg/actuation (Ventolin HFA) 2 puffs inhalation Q4-6H PRN amlodipine 10 mg PO DAILY cholecalciferol (vitamin D3) (Vitamin D3) 25 mcg PO DAILY clonazepam mg PO ferrous sulfate 325 mg PO DAILY fluticasone propionate 50 mcg/actuation 2 sprays intranasal DAILY mckdrddwtjd-qurwkmejp-frekzcpb 100-62.5-25 mcg (Trelegy Ellipta) 1 ea inhalation DAILY hydrocortisone 1% appl topical BID levocetirizine 5 mg PO DAILY lidocaine 5% 1 patch topical DAILY losartan 100 mg PO DAILY lurasidone (Latuda) 20 mg PO DAILY mupirocin 2% topical nystatin (Nystop) topical BID omeprazole 40 mg PO DAILY oxcarbazepine 300 mg PO BID propranolol ER 60 mg PO DAILY risperidone 2 mg PO BID sertraline 200 mg PO QAM HPI HPI TV Re-Est SWL BMI 79.3: Details: Start time: 11.59pm, End time: 12.44pm ?I spent 30 minutes speaking with the patient on the phone plus an additional 5 minutes reviewing and updating records for a total of 45 minutes HPI Comments Details: Previous weight loss efforts: WMP Wakes up: 7.30am, Sleeps: 9.30pm Breakfast: skips Lunch: 12pm (soup, sandwich) Dinner: 6pm (chicken, fish or pork) Snacks: 10am (granola bar, yogurt, fruit), 3pm (chips, popcorn), 8pm (ice cream or cookies) Exercise: none. Has Gym membership Fluids: Coffee: 2 cups/day (creamer and splenda), tea: hot and ice (1 every other day with honey), soda: Gingerale regular, juice: Cranberry 2/wk, ETOH: none PFSH Medical History (Updated 10/19/24 @ 12:15 by Adarsh Bradley MD) GERD (gastroesophageal reflux disease) Bipolar 1 disorder Sleep apnea treated with continuous positive airway pressure (CPAP) Asthma Overactive bladder Morbid obesity Migraines Insomnia Hypertension Obesity Depression Anxiety Sleep apnea GERD with apnea Surgical History History of colonoscopy History of endoscopy History of incision and drainage History of ankle surgery Hx of cholecystectomy History of tonsillectomy and adenoidectomy Family History Father Hypertension Heart disease Diabetes Sleep apnea Mother Hypertension Social History (Updated 10/09/24 @ 14:08 by Eliz Campos CMA) Unable to assess alcohol history related to: Unknown Alcohol intake: current Alcohol intake frequency: a few times a week Patient Tobacco Use Status: Never used Tobacco Telehealth Telehealth Telehealth Platform: Telephone Location of provider rendering services: practice address Location of patient: address on file Patient Identification confirmed using: Name, : Yes Telehealth method: voice only Patient verbally consented to treatment: Yes Patient verbally consented to billing insurance company: Yes Patient informed of any privacy concerns related to visit: Yes Minutes spent on Phone/Video with Pt.: 45 Assessment & Plan Assessment & Plan (1) Morbid obesity: Code(s): E66.01 - Morbid (severe) obesity due to excess calories Category: Medical Plan: 1.? Nutritional counseling. Start with 2 premade PREMIER protein shakes at 8am-10am and 11am-1pm, 1 PURE protein bar at 2pm-4pm, dinner at 7pm (10 forks of protein and 10 forks of salad/vegetables) and one more protein bar after dinner at 7pm-9pm. So you do 2 protein shakes, 2 protein bars and one meal per day. Meal to include lean meat (beef, fish, pork, turkey, chicken), or cam[place]onian yogurt, or egg whites, or beans with a salad with olive oil and fruits (berries, pears, apples, kiwi). Avoid salt, breads, potatoes, rice, pasta, desserts. 2. Each shake would be drunk slowly, like coffee in a period of 2 hours. 3. Cut each bar in 4 pieces and eat each piece in 30min ?to make each bar last 2 hours. 4. I emphasized the importance of measuring accurately the food portion and measure it when serving the food in plate 5. The meal portions include 10 full-size forks of meat and 10 full-size forks of salad. You always eat the meat portion but you can replace up to 5 forks for salad/vegetables with rice, potatoes or pasta, or a fruit ?if you like. The less you do it the better weight loss will be. 6. One full-size fork is what it can be scooped on the fork without falling aside and not what can be bit with the fork. Use regular forks like those you find in a typical restaurant. 7.? Please buy the body composition scale we discussed and send me weight measurements as soon as possible and then once a week. Always include your diet and exercise plan. 8. Start stationary bike at a resistance level of 0.0 Increase level by 1.0 every 3 min to a max level of 6.0. Stay at this level for 3 min and then return to level 0.0 and repeat same steps until 400 calories are burned, 5 days per week. Goal is to burn 2000 calories per week on exercise 9. The best choice would be to purchase a stationary bike at home that can track calories. Let me know if you do so I can give you an exercise plan. 10.?It is important of avoiding and for at least 18 months postoperatively and has been discussed at the infosession. 11. Goal is to lose at least 1.5-2lbs per week 12. Goal to lose 10% of your weight before surgery, which is about 39lbs. Ultimate weight goal: 353lbs before surgery 13. Please follow the diet plan exactly without any change. If you don't like something about the plan or you feel hungry you need to communicate with me so I can help you revise the plan. You should not change the plan yourself.
== END 2024-10-19 12:45 | disposition home or self-care (01) ==
LOC: HO.HBS 08:03
PROVIDERS: PCP Physician Assistant; Visit Provider Surgery
DX: E66.813 Obesity, class 3 (principal); Z68.45 Body mass index [BMI] 70 or greater, adult
CPT/HCPCS: 99443

== ENCOUNTER → 2024-10-19 08:03 | Outpatient (BNVA) | payer MEDICARE, MEDICAID, SELFPAY | PROVIDERS: PCP Physician Assistant; Visit Provider Surgery ==

== ENCOUNTER 2025-03-25 11:14 | Outpatient (AMB) | payer MEDICARE, MEDICAID, SELFPAY ==
--- NOTE | 2025-03-25 11:39 | MHC.OFFVIS ---
Intake Visit Reasons: Urinary Incontinence Intake Note: New patient presents today for initial visit for urinary incontinence Urology Medication:None Blood Thinner:None Antibiotic Allergies:None PVR:0ml Allergies Seasonal Allergies Allergy (Severe, Verified 03/25/25 11:55) Itchy Eyes topiramate [From Topamax] Allergy (Mild, Verified 03/25/25 11:55) Dizziness hydroxyzine Allergy (Mild, Uncoded 10/19/24 12:08) Dizziness PFSH Medical History GERD (gastroesophageal reflux disease) Bipolar 1 disorder Sleep apnea treated with continuous positive airway pressure (CPAP) Asthma Overactive bladder Morbid obesity Migraines Insomnia Hypertension Obesity Depression Anxiety Sleep apnea GERD with apnea Surgical History History of colonoscopy History of endoscopy History of incision and drainage History of ankle surgery Hx of cholecystectomy History of tonsillectomy and adenoidectomy Family History Father Hypertension Heart disease Diabetes Sleep apnea Mother Hypertension Social History Unable to assess alcohol history related to: Unknown Alcohol intake: current Alcohol intake frequency: a few times a week Patient Tobacco Use Status: Never used Tobacco Office Procedures Post Void Residual Post Residual Void Post Void Residual (PVR): [id number] Void Residual by ultrasound Assessment & Plan Assessment & Plan Orders: Orders AMB Urinalysis Automated 03/25/25 Z13.9 - Encounter for screening, unspecified AMB Post Void Residual by ultrasound 03/25/25 N39.41 - Urge incontinence Coding CPT Codes Post Residual Void - PVR CPT Code: [id number] Void Residual by ultrasound ([id number])
--- OUTSIDE RECORDS SUMMARY | 2025-03-25 13:11 | XMS_ITS | Encounter Summary ---
Author Organization [facility] Address [address] [place] [address] Care Team Providers Care Neurosurgical Nurse Practitioner Name Role Phone Anay Vazquez NP Primary Care Provider [phone] Encounter Details Date Type Department Care Team (Late st Contact Info) Description 05/01/2021 Orders Only [facility] Interventional Radiology [address], [place] [id number] Hardeep Amezcua MD [address], [place] [id number] Social History Tobacco Use Types Packs/Day Years Used Date Smoking Tobacco: Never Smokeless Tobacco: Never Comments Unknown Sex and Gender Information Value Date Recorded Sex Assigned at Not on file Legal Sex Female 1:58 PM EDT Gender Identity Not on file Sexual Orientation Not on file documented as of this encounter Plan of Treatment Not on file documented as of this encounter Visit Diagnoses Not on filedocumented in this encounter Care Teams Neurosurgical Nurse Practitioner Relationship Specialty Start Date End Date Anay Vazquez NP [address] [place] [id number] PCP - General 04/13/21 documented as of this encounter
== END 2025-03-25 12:13 | disposition home or self-care (01) ==
LOC: HO.HUSH 11:14
PROVIDERS: PCP Physician Assistant; Visit Provider Urology
DX: Z13.9 Encounter for screening, unspecified (principal)

== ENCOUNTER → 2025-03-25 11:14 | Outpatient (BNVA) | payer MEDICARE, MEDICAID, SELFPAY | PROVIDERS: PCP Physician Assistant; Visit Provider Urology | DX: R35.0 Frequency of micturition (principal); R32 Unspecified urinary incontinence; Z79.899 Other long term (current) drug therapy | CPT/HCPCS: 51798; 81003; 99202 ==